=== PATIENT | male | born 1945 | race Caucasian/White ===

== ENCOUNTER 2018-08-31 13:51 | Inpatient (IN) | payer MEDICARE, OTHER ==
[~2018-08-31] VITALS: Ht 182.9 cm; Wt 88.5 kg
[2018-08-31] VITALS (9 sets, daily range): BP systolic 110–144; BP diastolic 45–77
[2018-08-31] MEDS ORDERED: METFORMIN 1000 MG (14:04)
[2018-08-31] MEDS ORDERED: ZOLPIDEM 10 MG (14:04)
--- OUTSIDE RECORDS SUMMARY | 2018-08-31 14:15 | XMS REPORT | Continuity of Care Document ---
Author Organization Unknown Address Unknown Allergies There is no data. Medications There is no data. Problems There is no data. Procedures There is no data. Results There is no data. Encounters ACCT No. Visit Date/Time Discharge Status Pt. Type Provider Facility Loc./Unit Complaint [id number] 08/31/2018 10:40:00 ACT Outpatient [facility]
[2018-08-31 14:48] LABS: BASOPHILS % (AUTO) 0 % (0-10); EOSINOPHILS # (AUTO) 0.1 10^3/uL (0.0-0.3); EOSINOPHILS % (AUTO) 1 % (0-10); HEMATOCRIT 26 % (40-54); HEMOGLOBIN 7.8 G/DL (13.3-17.7); LYMPHOCYTES % (AUTO) 9 % (12-44); MEAN CORPUSCULAR HEMOGLOBIN 29 PG (25-34); MEAN CORPUSCULAR HGB CONC 30 G/DL (32-36); MEAN CORPUSCULAR VOLUME 97 FL (80-99); MEAN PLATELET VOLUME 11.3 FL (7.4-10.4); MONOCYTES % (AUTO) 8 % (0-12); NEUTROPHILS # (AUTO) 9.5 X 10^3 (1.8-7.8); NEUTROPHILS % (AUTO) 82 % (42-75); PLATELET COUNT 174 10^3/uL (130-400); RED CELL DISTRIBUTION WIDTH 25.1 % (10.0-14.5); WHITE BLOOD COUNT 11.6 10^3/uL (4.3-11.0)
[2018-08-31 15:00] LABS: ALBUMIN 3.4 GM/DL (3.2-4.5); BILIRUBIN,TOTAL 0.4 MG/DL (0.1-1.0); CALCIUM 8.9 MG/DL (8.5-10.1); CREATININE SERUM 1.66 MG/DL (0.60-1.30); MAGNESIUM 1.9 MG/DL (1.8-2.4); POTASSIUM 5.8 MMOL/L (3.6-5.0); TOTAL PROTEIN 7.8 GM/DL (6.4-8.2)
--- NOTE | 2018-08-31 15:44 | ED Respiratory ---
General Chief Complaint: Respiratory Problems Stated Complaint: SOB;LOW HEMOGLOBIN Nursing Triage Note: PT SENT FROM [facility] WITH COMPLAINT OF LOW HGB. STATES HGB TODAY WAS 3.5. STATES 3 WEEKS AGO WAS 6.5 Source: patient Exam Limitations: no limitations History of Present Illness Date Seen by Provider: Aug 31, 2018 Time Seen by Provider: 14:25 Initial Comments Here with report of low hemoglobin. Apparently he was seen at the clinic in [place] and was told he had a hemoglobin of 3.5 on a rapid test. He went to the clinic because he was having dizziness and shortness of breath when walking. Does have history of low hemoglobin and a few weeks ago was apparently 6.5. Previous records indicate that he has multiple episodes of this. He is not sure exactly why. Denies fever or chills but does admit to weakness. Does have shortness of breath especially with activity. No reported swelling in his legs but does have increased swelling and redness abdomen which she says is typical for him. Denies any knowledge of cause of blood loss and denies blood in stool or urine. Timing/Duration: week, getting worse Severity: moderate Prior Episodes/Possible Cause: occasional episodes Associated Symptoms: No chest pain/soreness, No cough; dizziness; No fever/ chills; lightheadedness; No nasal congestion, No nasal drainage; shortness of breath; No sinus infection, No wheezing Allergies and Home Medications Allergies Coded Allergies: No Known Drug Allergies (Unverified , 08/31/18) Home Medications Aspirin 81 Mg Tablet.dr, 81 MG PO DAILY, (Reported) Ferrous Sulfate 325 Mg Tablet, 325 MG PO DAILY, (Reported) Ibuprofen 200 Mg Tablet, 600 MG PO TID PRN for PAIN-MILD, (Reported) Metformin HCl 1,000 Mg Tablet, 1,000 MG PO BID, (Reported) Multivit-Min/Folic/Vit K/Lycop 1 Each Tablet, 1 TAB PO DAILY, (Reported) [place]-3/Dha/Epa/Fish Oil 1 Each Capsule, 1 CAP PO BID, (Reported) Zolpidem Tartrate 10 Mg Tablet, 10 MG PO HS, (Reported) Patient Home Medication List Home Medication List Reviewed: Yes Review of Systems Review of Systems Constitutional: see HPI; No chills, No fever; weakness EENTM: no symptoms reported Respiratory: No cough; dyspnea on exertion, short of breath; No wheezing Cardiovascular: No chest pain, No edema, No palpitations Gastrointestinal: No abdominal pain, No nausea, No vomiting Genitourinary: no symptoms reported Musculoskeletal: no symptoms reported Skin: change in color; No lesions Psychiatric/Neurological: Denies Headache; Weakness Hematologic/Lymphatic: Anemia; Denies Easy Bleeding, Denies Easy Bruising Immunological/Allergic: no symptoms reported All Other Systems Reviewed Negative Unless Noted: Yes Past Crdxdkx-Iynylw-Irayej Hx Past Med/Social Hx: Reviewed Nursing Past Med/Soc Hx Patient Social History Alcohol Use: Denies Use Recreational Drug Use: No Smoking Status: Former Smoker Type Used: Smokeless Tobacco Recent Foreign Travel: No Contact w/Someone Who Travel: No Recent Infectious Disease Expo: No Recent Hopitalizations: No Physical Abuse: No Sexual Abuse: No Immunizations Up To Date Tetanus Booster (TDap): Unknown PED Vaccines UTD: Yes Seasonal Allergies Seasonal Allergies: No Past Medical History Surgeries: Yes (EXPLORATORY LAP) Tonsillectomy Respiratory: Yes Pneumonia Cardiac: No Neurological: No Genitourinary: No Gastrointestinal: No Musculoskeletal: No Endocrine: Yes Diabetes, Non-Insulin dep HEENT: No Cancer: No Psychosocial: No Integumentary: No Family Medical History Reviewed Nursing Family Hx Physical Exam Vital Signs - First Documented 08/31/18 14:00 Temp 97.7 Pulse 57 Resp 20 B/P (MAP) 104/51 (68) Pulse Ox 92 O2 Delivery Room Air O2 Flow Rate 2.00 Capillary Refill : Less Than 3 Seconds Height: 6'0" Weight: 183lbs. oz. 83.819749ks; BMI Method:Stated General Appearance: WD/WN, no apparent distress HEENT: PERRL/EOMI, pharynx normal, pale conjunctivae (R), pale conjunctivae (L) Neck: full range of motion, supple Respiratory: no accessory muscle use, crackles (bilateral bases) Cardiovascular: no murmur, bradycardia Gastrointestinal: non tender, soft; No abnormal bowel sounds; distended Extremities: non-tender, normal inspection Neurologic/Psychiatric: alert, oriented x 3 Skin: normal color, warm/dry Focused Exam Lactate Level Lactic Acid Level Procedures/Interventions Lumen: triple Central Line Procedure: betadine prep, sterile drapes applied, sterile dressing applied Position: internal jugular (R) Anesthesia: Lidocaine Volume Anesthetic (ccs): 4 Complications: none Post Position: sutured, good blood return, position confirmed w/ CXR Placed via ultrasound guidance times one stick with out complications. Tolerated procedure well. Post chest x-ray confirmed placement. No pneumothorax. Progress/Results/Core Measures Suspected Sepsis Recent Fever Within 48 Hours: No Infection Criteria Present: None New/Unexplained Altered Menta: No Sepsis Screen: No Definite Risk SIRS Temperature:97.7 Pulse: 57 Respiratory Rate: 20 Laboratory Tests 08/31/18 14:20: White Blood Count 11.6H Blood Pressure 104 /51 Mean: 68 Laboratory Tests 08/31/18 14:20: Creatinine 1.66H, Platelet Count 174, Total Bilirubin 0.4 Results/Orders Lab Results Laboratory Tests Test 08/31/18 14:20 08/31/18 16:27 Range/Units White Blood Count 11.6 H 4.3-11.0 10^3/uL Red Blood Count 2.72 L 4.35-5.85 10^6/uL Hemoglobin 7.8 L 13.3-17.7 G/DL Hematocrit 26 L 40-54 % Mean Corpuscular Volume 97 80-99 FL Mean Corpuscular Hemoglobin 29 25-34 PG Mean Corpuscular Hemoglobin Concent 30 L 32-36 G/DL Red Cell Distribution Width 25.1 H 10.0-14.5 % Platelet Count 174 130-400 10^3/uL Mean Platelet Volume 11.3 H 7.4-10.4 FL Neutrophils (%) (Auto) 82 H 42-75 % Lymphocytes (%) (Auto) 9 L 12-44 % Monocytes (%) (Auto) 8 0-12 % Eosinophils (%) (Auto) 1 0-10 % Basophils (%) (Auto) 0 0-10 % Neutrophils # (Auto) 9.5 H 1.8-7.8 X 10^3 Lymphocytes # (Auto) 1.0 1.0-4.0 X 10^3 Monocytes # (Auto) 1.0 0.0-1.0 X 10^3 Eosinophils # (Auto) 0.1 0.0-0.3 10^3/uL Basophils # (Auto) 0.0 0.0-0.1 10^3/uL Sodium Level 140 135-145 MMOL/L Potassium Level 5.8 H 3.6-5.0 MMOL/L Chloride Level 114 H 98-107 MMOL/L Carbon Dioxide Level 16 L 21-32 MMOL/L Anion Gap 10 5-14 MMOL/L Blood Urea Nitrogen 36 H 7-18 MG/DL Creatinine 1.66 H 0.60-1.30 MG/DL Estimat Glomerular Filtration Rate 41 BUN/Creatinine Ratio 22 Glucose Level 190 H 70-105 MG/DL Calcium Level 8.9 8.5-10.1 MG/DL Corrected Calcium 9.4 8.5-10.1 MG/DL Magnesium Level 1.9 1.8-2.4 MG/DL Total Bilirubin 0.4 0.1-1.0 MG/DL Aspartate Amino Transf (AST/SGOT) 48 H 5-34 U/L Alanine Aminotransferase (ALT/SGPT) 34 0-55 U/L Alkaline Phosphatase 137 H 40-136 U/L Lactate Dehydrogenase 474 H 125-220 U/L Troponin I 0.066 H <0.028 NG/ML B-Type Natriuretic Peptide 1240.9 H <100.0 PG/ML Total Protein 7.8 6.4-8.2 GM/DL Albumin 3.4 3.2-4.5 GM/DL Thyroid Stimulating Hormone (TSH) 1.89 0.35-4.94 UIU/ML Urine Color YELLOW Urine Clarity SLIGHTLY CLOUDY Urine pH 5 5-9 Urine Specific [place] 1.020 1.016-1.022 Urine Protein 2+ H NEGATIVE Urine Glucose (UA) 2+ H NEGATIVE Urine Ketones 1+ H NEGATIVE Urine Nitrite NEGATIVE NEGATIVE Urine Bilirubin NEGATIVE NEGATIVE Urine Urobilinogen NORMAL NORMAL MG/DL Urine Leukocyte Esterase 1+ H NEGATIVE Urine RBC (Auto) 1+ H NEGATIVE Urine RBC 0-2 /HPF Urine WBC 5-10 H /HPF Urine Squamous Epithelial Cells 2-5 /HPF Urine Crystals NONE /LPF Urine Bacteria TRACE /HPF Urine Casts PRESENT /LPF Urine Hyaline Casts 2-5 H /LPF Urine White Blood Cell Casts 2-5 H /LPF Urine Mucus SMALL H /LPF Urine Culture Indicated YES Micro Results Microbiology 08/31/18 Urine Culture - Preliminary, Resulted Mixed Bacterial Sarika With Escherichia coli My Orders Orders - HENOK HENLEY MD BNP (08/31/18 14:38) Cbc With Automated Diff (08/31/18 14:38) Comprehensive Metabolic Panel (08/31/18 14:38) Magnesium (08/31/18 14:38) Thyroid Stimulating Hormone (08/31/18 14:38) Troponin I (08/31/18 14:38) Ua Culture If Indicated (08/31/18 14:38) Ed Iv/Invasive Line Start (08/31/18 14:38) Ekg Tracing (08/31/18 14:38) O2 (08/31/18 14:38) Monitor-Rhythm Ecg Trace Only (08/31/18 14:38) Ed Iv/Invasive Line Start (08/31/18 14:38) Red Cells Leukocytes Reduced (08/31/18 14:38) Type And Screen (08/31/18 14:38) Chest Pa/Lat (2 View) (08/31/18 15:36) Lactic Acid Analyzer (08/31/18 16:35) Blood Culture (08/31/18 16:35) Vital Signs/I&O 08/31/18 08/31/18 14:00 14:00 Temp 97.7 Pulse 57 Resp 20 B/P (MAP) 104/51 (68) Pulse Ox 92 99 O2 Delivery Room Air Nasal Cannula O2 Flow Rate 2.00 Capillary Refill : Less Than 3 Seconds Blood Pressure Mean: 68 Progress Note : Progress Note Seen and evaluated. IV, labs, EKG and UA ordered. Chest x-ray 2 view ordered. We did type and cross 2 units to give the patient's hemoglobin was found to be 7.8 so we will hold those currently. Evaluating for congestive heart failure and BNP is quite elevated in setting of dyspnea on exertion and crackles on exam indicating patient likely does have acute heart failure. Monitor patient. 1546: She is noted to have heart rate fluctuations between the 30s and low 50s on the monitor. 1630: Chest x-ray obtained. Concerns about pneumonia. Also concerns about heart failure. We will get blood cultures and lactic acid drawn now due to new findings. Patient will require admission. 1647: I discussed the case with Dr. Madden and she accepts patient for admission, inpatient status. 1650 I have talked with Dr. Perez and he accepts patient in consult. He requested ICU status so that will be upgraded. Dr. Madden has requested Dr. Cook on consult and that was placed. 1728: Dr. Perez has seen the patient in the emergency department. We will transfuse 2 units of packed red blood cells on arrival to the unit. We'll give Lasix 40 mg IV now. Patient will require calcium due to the hyperkalemia in the setting of bradycardia. We will also give Zosyn for treatment of the pneumonia. Patient has very poor access and we will place central line. 1732: Lactic acid noted at 4.03. This would put the patient in the status of severe sepsis and would require high-volume fluid resuscitation. In this patient, that would be dangerous due to the heart failure. He will be receiving blood and I believe that is his greatest need currently. He will be receiving Lasix as well and fluid with the blood. We will hold on high-volume fluid resuscitation at this point as we maximized cardiovascular system otherwise. Patient will be admitted to the ICU. This was discussed with Dr. Madden who agrees. Patient also received Kayexalate 15 mL by mouth for the hyperkalemia and 2 A of calcium gluconate. All findings concerns were discussed with patient and family who agree with the plan. Admit inpatient status to the ICU. Labs per Dr. Brasher were ordered prior to transfusion and lab will obtained blood or will draw as needed prior to transfusion to achieve appropriate results. 1810: Central line placed without difficulty. Post chest x- ray view didn't show central line in good position without pneumothorax. Okay to use the line. I did discuss the case with Dr. Reed. He will follow in the ICU as well. Patient to be admitted to the ICU and transfusion to be initiated. Admit, inpatient status. Stable but critical condition. ECG Initial ECG Impression Date: Aug 31, 2018 Initial ECG Impression Time: 14:35 Initial ECG Rate: 43 Initial ECG Rhythm: S.Joselito Initial ECG Impression: Sinus Bradycardia Initial ECG Comparisson: No Previous ECG Available Comment Junctional escape rhythm with absence of P waves. No evidence of ST elevation VA. Left axis deviation. Findings consistent with right bundle branch block and left anterior fascicular block noted. Compared to 01 May 2017 from [facility] EKG shows very similar findings. Diagnostic Imaging Diagonstic Imaging: Xray Plain Films/CT/US/NM/MRI: chest Comments [facility] UPMCContinuity Control [facility] [place], [place] NAME: LOTUS MAY [facility] REC#: [id number] PT STATUS: REG ER : 1945 PHYSICIAN: HENOK HENLEY MD ADMIT DATE: 08/31/18/ER Draft Date of Exam:08/31/18 CHEST PA/LAT (2 VIEW) EXAMINATION: PA and lateral chest at 04:04 p.m. INDICATION: Respiratory distress. FINDINGS: There are no prior studies available for comparison. The heart size is at the upper limits of normal. There are alveolar/interstitial infiltrates along the periphery of each lung base and the right mid lung. It is possible these findings are entirely chronic in nature. If previous exams are available, they would be helpful for comparison. The possibility that these abnormal parenchymal densities are related to acute pneumonia/atelectasis should be considered as well. The mediastinum is not widened. The osseous structures are intact. There does appear to be a 30-40% compression deformity of the superior endplate of T11. I suspect this injury is long-standing in nature. IMPRESSION: There are alveolar/interstitial parenchymal infiltrates along the periphery of each lung base and the right mid lung. While these findings are chronic in nature, due to an acute abnormality or to a combination of both chronic and active disease is not certain. If previous studies are available, they would be helpful for comparison. Otherwise a follow-up chest exam would be recommended for continued evaluation. Dictated on workstation # [id number] Dict: 08/31/18 1620 Trans: 08/31/18 1628 [id number] Interpreted by: BARBRA NORRIS MD Electronically signed by: Tessa Imaging: Xray Plain Films/CT/US/NM/MRI: chest Comments Central line placement chest x-ray shows central line in good position without pneumothorax. Departure Communication (Admissions) Time/Spoke to Admitting Phy: 16:47 Time/Spoke to Consulting Phy: 16:48 Impression Primary Impression: Bilateral pneumonia Qualified Codes: J18.1 - Lobar pneumonia, unspecified organism Additional Impressions: Acute heart failure Qualified Codes: I50.9 - Heart failure, unspecified Anemia Qualified Codes: D64.9 - Anemia, unspecified Acute hyperkalemia Bradycardia Acute renal failure Qualified Codes: N17.9 - Acute kidney failure, unspecified Disposition: ADMITTED INPATIENT Condition: Stable Admissions Decision to Admit Reason: Admit from ER (General) Decision to Admit/Date: Aug 31, 2018 Time/Decision to Admit Time: 17:38 Departure-Patient Inst. Referrals: JASS [facility] MD (PCP/Family) Primary Care Physician HENOK HENLEY MD Aug 31, 2018 15:44
--- NOTE | 2018-08-31 16:28 | Diagnostic Imaging Report ---
EXAMINATION: PA and lateral chest at 04:04 p.m. INDICATION: Respiratory distress. FINDINGS: There are no prior studies available for comparison. The heart size is at the upper limits of normal. There are alveolar/interstitial infiltrates along the periphery of each lung base and the right mid lung. It is possible these findings are entirely chronic in nature. If previous exams are available, they would be helpful for comparison. The possibility that these abnormal parenchymal densities are related to acute pneumonia/atelectasis should be considered as well. The mediastinum is not widened. The osseous structures are intact. There does appear to be a 30-40% compression deformity of the superior endplate of T11. I suspect this injury is long-standing in nature. IMPRESSION: There are alveolar/interstitial parenchymal infiltrates along the periphery of each lung base and the right mid lung. While these findings are chronic in nature, due to an acute abnormality or to a combination of both chronic and active disease is not certain. If previous studies are available, they would be helpful for comparison. Otherwise a follow-up chest exam would be recommended for continued evaluation. Dictated by: Dictated on workstation # [id number]
[2018-08-31 16:32] LABS: BILIRUBIN,URINE NEGATIVE (NEGATIVE); CLARITY,URINE SLIGHTLY CLOUDY; COLOR,URINE YELLOW; GLUCOSE, URINE (UA) 2+ (NEGATIVE); KETONES,URINE 1+ (NEGATIVE); LEUKOCYTE ESTERASE ,URINE 1+ (NEGATIVE); NITRITE,URINE NEGATIVE (NEGATIVE); PH,URINE 5 (5-9); PROTEIN,URINE 2+ (NEGATIVE); UROBILINOGEN,URINE NORMAL (NORMAL)
[2018-08-31 16:48] LABS: BACTERIA,URINE TRACE /HPF; RBC,URINE 0-2 /HPF
[2018-08-31] MEDS ORDERED: FUROSEMIDE 40 MG/4 ML INJ (LASIX) IV STA (16:53)
[2018-08-31] MEDS ORDERED: SOD POLYSTERENE 15 GM/60 ML (KAYEXALATE) UNIT DOSE PO ONE (17:00)
--- NOTE | 2018-08-31 17:01 | NUR ---
DR MORA HERE TO SEE PT
[2018-08-31] MEDS ORDERED: CALCIUM GLUC. 10% 4.65 MEQ/10 ML VIAL ONE (17:07)
[2018-08-31] MEDS ORDERED: CALCIUM GLUC. 10% 4.65 MEQ/10 ML VIAL IV ONE ×3 (17:15→18:30)
[2018-08-31] MEDS ORDERED: PIPERACILLIN/TAZOBACTAM (BULK) 4.5 GM in NS (IVPB) 100 ML IV ONE (17:15)
--- OUTSIDE RECORDS SUMMARY | 2018-08-31 18:13 | XMS REPORT | Continuity of Care Document ---
Author Organization Unknown Address Unknown Allergies There is no data. Medications There is no data. Problems There is no data. Procedures There is no data. Results There is no data. Encounters ACCT No. Visit Date/Time Discharge Status Pt. Type Provider Facility Loc./Unit Complaint [id number] 08/31/2018 10:40:00 ACT Outpatient [facility]
--- NOTE | 2018-08-31 18:29 | Diagnostic Imaging Report ---
INDICATION: Central line placement. COMPARISON: Imaging from the same day. TECHNIQUE: Single frontal radiograph of the chest dated August 31, 2018 at 1802 hours. FINDINGS: Interval placement of a right IJ central venous catheter with the distal tip near the cavoatrial junction. There is no evidence of a pneumothorax. The cardiac silhouette is stable. Extensive mixed interstitial and airspace opacities are again noted throughout the lungs bilaterally, predominantly in a peripheral distribution. This is possibly slightly worsened within the lateral right lung. No pneumothorax. No new acute osseous abnormality. IMPRESSION: Interval placement of a right IJ central venous catheter with the distal tip near the cavoatrial junction without pneumothorax. Persistent extensive mixed interstitial and airspace opacities, possibly slightly worse within the lateral right lung base. These are of uncertain etiology or chronicity. Although findings could predominantly relate to chronic interstitial changes, superimposed infiltrate such as edema or pneumonia may be present. Recommend continued radiographic followup. Dictated by: Dictated on workstation # [id number]
--- NOTE | 2018-08-31 18:51 | Consultation-Cardiology ---
HPI-Cardiology Cardiology Consultation: Date of Consultation 08/31/18 Time Seen by a Provider: 17:00 Date of Admission Attending Physician Alison Madden DO Admitting Physician Kathryn Lepe MD Consulting Physician ANTHONY MORA MD, MA, FACP, FACC, FSCAI, CCDS HPI: Chief Complaint: CC: Malaise, weakness, tiredness, shortness of breath HPI 73 yo man who presented to ER with 3-4 days of increasing weakness and malaise and shortness of breath. Denies cp or palp or syncope. Notes mild leg swelling. No N/V. Some abd distention w/o pain, apparently chronic Review of Systems-Cardiology Review of Systems Constitutional: As described under HPI Eyes: No vision change Ears/Nose/Throat: No ear discharge, No nasal drainage, No recent hearing loss Respiratory: As described under HPI Cardiovascular: As described under HPI Gastrointestinal: As described under HPI Genitourinary: No dysuria, No hematuria Musculoskeletal: back pain (chronic) Skin: No rash, No ulcerations Psychiatric/Neurological: No seizure, No focal weakness, No syncope All Other Systems Reviewed Negative Unless Noted: Yes EAA-Facnxf-Tljqpf Hx Patient Social History Alcohol Use: Denies Use Recreational Drug Use: No Smoking Status: Former Smoker Type Used: Smokeless Tobacco Recent Foreign Travel: No Recent Infectious Disease Expo: No Hospitalization with Isolation: Denies Immunizations Up To Date Tetanus Booster (TDap): Unknown Past Medical History PMH As described under Assessment. Family Medical History Family Medical History: Does not report fam h/o early CAD or SCD Allergies and Home Medications Allergies Coded Allergies: No Known Drug Allergies (Unverified , 08/31/18) Patient Home Medication List Home Medication List Reviewed: Yes Physical Exam-Cardiology Physical Exam Vital Signs/I&O 08/31/18 08/31/18 14:00 14:00 Temp 97.7 Pulse 57 Resp 20 B/P (MAP) 104/51 (68) Pulse Ox 92 99 O2 Delivery Room Air Nasal Cannula O2 Flow Rate 2.00 Capillary Refill : Less Than 3 Seconds Constitutional: AAO x 3, well-developed, well-nourished, other (pale appearing) HEENT: PERRL, EOMI; No xanthelasmas are seen Neck: carotid pulses are 2 + bilaterally, with good upstrokes Respiratory: No accessory muscle use; other (bibasilar coarse crackles, more on the R; prolonged exp) Cardiovascular: irregularly irregular, S1 and S2, systolic murmur (soft HETAL at card base) Gastrointestinal: No tender; distended; No guarding, No rebound; audible bowel sounds Extremities: swelling (mild bilat leg edema); No clubbing, No cyanosis Neurologic/Psychiatric: oriented x 3, other (able to move all limbs equally) Skin: No rash on exposed areas, No ulcerations on exposed areas Data Review Labs Laboratory Tests 08/31/18 14:20: White Blood Count 11.6H, Red Blood Count 2.72L, Hemoglobin 7.8L, Hematocrit 26L , Mean Corpuscular Volume 97, Mean Corpuscular Hemoglobin 29, Mean Corpuscular Hemoglobin Concent 30L, Red Cell Distribution Width 25.1H, Platelet Count 174, Mean Platelet Volume 11.3H, Neutrophils (%) (Auto) 82H, Lymphocytes (%) (Auto) 9L, Monocytes (%) (Auto) 8, Eosinophils (%) (Auto) 1, Basophils (%) (Auto) 0, Neutrophils # (Auto) 9.5H, Lymphocytes # (Auto) 1.0, Monocytes # (Auto) 1.0, Eosinophils # (Auto) 0.1, Basophils # (Auto) 0.0, Sodium Level 140, Potassium Level 5.8H, Chloride Level 114H, Carbon Dioxide Level 16L, Anion Gap 10, Blood Urea Nitrogen 36H, Creatinine 1.66H, Estimat Glomerular Filtration Rate 41, BUN/ Creatinine Ratio 22, Glucose Level 190H, Calcium Level 8.9, Corrected Calcium 9.4, Magnesium Level 1.9, Total Bilirubin 0.4, Aspartate Amino Transf (AST/SGOT ) 48H, Alanine Aminotransferase (ALT/SGPT) 34, Alkaline Phosphatase 137H, Lactate Dehydrogenase 474H, Troponin I 0.066H, B-Type Natriuretic Peptide 1240.9H, Total Protein 7.8, Albumin 3.4, Thyroid Stimulating Hormone (TSH) 1.89 08/31/18 16:27: Urine Color YELLOW, Urine Clarity SLIGHTLY CLOUDY, Urine pH 5, Urine Specific [place] 1.020, Urine Protein 2+H, Urine Glucose (UA) 2+H, Urine Ketones 1+H, Urine Nitrite NEGATIVE, Urine Bilirubin NEGATIVE, Urine Urobilinogen NORMAL, Urine Leukocyte Esterase 1+H, Urine RBC (Auto) 1+H, Urine RBC 0-2, Urine WBC 5- 10H, Urine Squamous Epithelial Cells 2-5, Urine Crystals NONE, Urine Bacteria TRACE, Urine Casts PRESENT, Urine Hyaline Casts 2-5H, Urine White Blood Cell Casts 2-5H, Urine Mucus SMALLH, Urine Culture Indicated YES 08/31/18 17:06: Lactic Acid Level 4.03*H Laboratory Tests 08/31/18 14:20 08/31/18 18:45 A/P-Cardiology Assessment/Admission Diagnosis Sepsis, managed by Dr Madden Pneumonia Ac renal failure with hyperkalemia A Fib with bradycardia vs junctional rhythm Marked anemia of undetermined etiology, GI bleed suspected. Not suitable for anticoag at this time CHF of undetermined etiology H/o tobacco use. Quit smoking in the , but continues to chew tobacco Discussion and Recomendations * Complex management due to multiple concurrent and active comorbidities (see above) * Treat anemia: transfusion * Treat acute renal failure: managed by Dr Madden * Treat hyperkalemia: furosemide + Kayexalate + calcium gluconate * Not suitable of anticoag at this time * If bradycardia remains after treatment of acute issues, then may need perm pacemaker. Currently bradycardic, but hemodynamically stable * ANTHONY Fong MD FACP FAC CCDS Aug 31, 2018 18:51
[2018-08-31 18:52] LABS: ABSOLUTE RETIC # 47 10e9/L (24-90); BASOPHILS % (AUTO) 0 % (0-10); EOSINOPHILS # (AUTO) 0.2 10^3/uL (0.0-0.3); EOSINOPHILS % (AUTO) 2 % (0-10); HEMATOCRIT 24 % (40-54); HEMOGLOBIN 7.1 G/DL (13.3-17.7); LYMPHOCYTES # (AUTO) 0.8 X 10^3 (1.0-4.0); LYMPHOCYTES % (AUTO) 7 % (12-44); MEAN CORPUSCULAR HEMOGLOBIN 29 PG (25-34); MEAN CORPUSCULAR HGB CONC 30 G/DL (32-36); MEAN CORPUSCULAR VOLUME 97 FL (80-99); MEAN PLATELET VOLUME 10.9 FL (7.4-10.4); MONOCYTES % (AUTO) 9 % (0-12); NEUTROPHILS % (AUTO) 82 % (42-75); PLATELET COUNT 179 10^3/uL (130-400); RETICULOCYTE % 1.89 % (0.50-2.40)
[2018-08-31] MEDS ORDERED: CATHETER FLUSH 10 ML SYR IV PRN (19:15)
[2018-08-31] MEDS ORDERED: FUROSEMIDE 40 MG/4 ML INJ (LASIX) IV SCH (19:15)
[2018-08-31] MEDS ORDERED: NS IV 1000 ML 2,490.21 ML IV ONE (19:15)
[2018-08-31 19:17] LABS: BAND NEUTROPHILS 0 %; BASOPHILS % (MANUAL) 0 %; EOSINOPHILS % (MANUAL) 2 %; HYPOCHROMASIA SLIGHT; LYMPHOCYTES % (MANUAL) 9 %; MONOCYTES % (MANUAL) 1 %; NEUTROPHILS % (MANUAL) 88 %; POLYCHROMASIA SLIGHT
[2018-08-31 19:18] LABS: ANISOCYTOSIS SLIGHT; ELLIPT/OVALOCYTES SLIGHT
--- NOTE | 2018-08-31 19:23 | NUR ---
1850 Patient arrived on Unit. Connected to monitor. VSS. Bradycardic. HR in 40's. BP OK. A and O x4. SKin assessed and no wounds/sores present. Pleasant demeanor. Side rails up. Call Light placed within patient's reach. Report given to Plush Brusher RN shortly thereafter.
[2018-08-31] MEDS: NOREPINEPHRINE 4 MG in NS (IVPB) 250 ML IV SCH (20:06)
[2018-08-31] MEDS: NS IV 1000 ML 1,000 ML IV SCH ×3 (20:06→23:13)
[2018-08-31] MEDS ORDERED: RT-ALBUTEROL/IPRATROPIUM 3 ML (DUONEB) VIAL INH PRN (21:00)
[2018-08-31] MEDS: inSUlin ASPART (NovoLOG) 1 UNIT/0.01 ML (CHARGE PER UNIT) SC SCH (21:41)
[2018-08-31] MEDS: RT-ALBUTEROL/IPRATROPIUM 3 ML (DUONEB) VIAL INH SCH (22:31)
[2018-09-01] VITALS (27 sets, daily range): BP systolic 110–152; BP diastolic 25–117
[2018-09-01] MEDS ORDERED: FUROSEMIDE 40 MG/4 ML INJ (LASIX) IVP ONE (00:30)
[2018-09-01] MEDS ORDERED: PIPERACILLIN/TAZO 4.5 GM VIAL (ZOSYN) IV ONE (01:47)
[2018-09-01] MEDS: PIPERACILLIN/TAZO 4.5 GM/NS 100 ML IV SCH ×6 (02:10→17:13)
[2018-09-01] MEDS: NOREPINEPHRINE 4 MG in NS (IVPB) 250 ML IV SCH (02:11)
[2018-09-01] MEDS: RT-ALBUTEROL/IPRATROPIUM 3 ML (DUONEB) VIAL INH SCH ×6 (02:28→21:47)
[2018-09-01] MEDS ORDERED: NS IV 1000 ML 1,000 ML IV SCH (03:01)
[2018-09-01 03:30] LABS: BASOPHILS % (AUTO) 0 % (0-10); EOSINOPHILS # (AUTO) 0.1 10^3/uL (0.0-0.3); EOSINOPHILS % (AUTO) 1 % (0-10); HEMATOCRIT 27 % (40-54); HEMOGLOBIN 8.3 G/DL (13.3-17.7); LYMPHOCYTES % (AUTO) 10 % (12-44); MEAN CORPUSCULAR HEMOGLOBIN 29 PG (25-34); MEAN CORPUSCULAR HGB CONC 31 G/DL (32-36); MEAN CORPUSCULAR VOLUME 93 FL (80-99); MEAN PLATELET VOLUME 10.7 FL (7.4-10.4); MONOCYTES # (AUTO) 0.9 X 10^3 (0.0-1.0); MONOCYTES % (AUTO) 9 % (0-12); NEUTROPHILS # (AUTO) 7.7 X 10^3 (1.8-7.8); NEUTROPHILS % (AUTO) 79 % (42-75); PLATELET COUNT 151 10^3/uL (130-400); RED CELL DISTRIBUTION WIDTH 24.3 % (10.0-14.5); WHITE BLOOD COUNT 9.8 10^3/uL (4.3-11.0)
[2018-09-01 03:47] LABS: CALCIUM 8.9 MG/DL (8.5-10.1); CREATININE SERUM 1.74 MG/DL (0.60-1.30); MAGNESIUM 1.9 MG/DL (1.8-2.4); PHOSPHORUS 3.8 MG/DL (2.3-4.7); POTASSIUM 4.5 MMOL/L (3.6-5.0)
[2018-09-01] MEDS: inSUlin ASPART (NovoLOG) 1 UNIT/0.01 ML (CHARGE PER UNIT) SC SCH ×4 (05:06→18:05)
[2018-09-01] MEDS: MAGNESIUM 1 GM/100 ML IVPB 100 ML IV SCH (05:06)
--- NOTE | 2018-09-01 05:40 | Pulmonary Consultation ---
History of Present Illness History of Present Illness Date of Consultation 09/01/18 05:34 Time Seen by Provider: 05:34 Date of Admission History of Present Illness 73yo presented to ED secondary to worsening weakness, fatigue, and SOB over the last 4days. Pt was dx with bradycardia and pneumonia in the ED. He started on Zosyn and admitted to ICU. He was also found to have Hb 7.8 2 units of PRBC were ordered. Cardiology is consulted. No hypotension. He does have acute renal failure and LA was initially elevated. No prior episodes like this in the past. I am consulted for pulmonary/ICU management. Allergies and Home Medications Allergies Coded Allergies: No Known Drug Allergies (Unverified , 08/31/18) Past Ksrixgd-Wvwtgq-Hthbnr Hx Past Med/Social Hx: Reviewed Nursing Past Med/Soc Hx Patient Social History Alcohol Use: Denies Use Recreational Drug Use: No Smoking Status: Former Smoker Type Used: Smokeless Tobacco Recent Foreign Travel: No Contact w/Someone Who Travel: No Recent Infectious Disease Expo: No Recent Hopitalizations: No Physical Abuse: No Sexual Abuse: No Immunizations Up To Date Tetanus Booster (TDap): Unknown PED Vaccines UTD: Yes Date of Pneumonia Vaccine: Aug 23, 2014 Seasonal Allergies Seasonal Allergies: No Past Medical History Surgeries: Yes (EXPLORATORY LAP) Tonsillectomy Respiratory: Yes Pneumonia Cardiac: No Neurological: No Genitourinary: No Gastrointestinal: No Musculoskeletal: No Endocrine: Yes Diabetes, Non-Insulin dep HEENT: No Cancer: No Psychosocial: No Integumentary: No Family Medical History Reviewed Nursing Family Hx Review of Systems Time Seen by Provider: 06:32 Constitutional: Sweats, Weakness, Malaise; No: Fever, Chills, Other Eyes: No: Pain, Vision change, Conjunctivae inflammation, Eyelid inflammation, Other, Redness ENT: Nose congestion Respiratory: Cough, Dry, Shortness of breath, SOB with excertion, Wheezing Cardiovascular: Paroxysmal Noc. Dyspnea; No: Chest Pain, Palpitations, Orthopnea, Edema Gastrointestinal: No: Nausea, Vomiting, Diarrhea, Constipation Genitourinary: No Dysuria Neurological: Weakness, Confusion Sepsis Event Evaluation Height, Weight, BMI Height: 6'0.00" Weight: 183lbs. 0.0oz. 83.160256gc; 24.8 BMI Method:Stated Exam Exam Vital Signs Date Time Temp Pulse Resp B/P (MAP) Pulse Ox O2 Delivery O2 Flow Rate FiO2 09/01/18 05:00 77 19 121/54 (76) 91 Nasal Cannula 2.00 09/01/18 04:00 93 Nasal Cannula 2.00 09/01/18 04:00 82 22 124/56 (78) 92 Nasal Cannula 2.00 09/01/18 03:11 98.6 49 18 130/51 93 Nasal Cannula 2.00 09/01/18 03:00 43 28 118/53 (74) 95 Nasal Cannula 2.00 09/01/18 02:28 94 Nasal Cannula 2.00 09/01/18 02:00 43 24 110/51 (70) 95 Nasal Cannula 2.00 09/01/18 01:11 45 09/01/18 01:00 48 23 129/44 (72) 93 Nasal Cannula 2.00 09/01/18 00:55 98.3 53 18 126/58 92 Nasal Cannula 2.00 09/01/18 00:35 98.5 54 16 129/49 92 Nasal Cannula 2.00 09/01/18 00:00 93 Nasal Cannula 2.00 09/01/18 00:00 45 24 119/44 (69) 91 Nasal Cannula 2.00 09/01/18 00:00 45 16 119/44 (69) 92 Nasal Cannula 2.00 08/31/18 23:40 98.8 08/31/18 23:10 98.8 49 18 143/52 93 Nasal Cannula 2.00 08/31/18 23:00 47 23 119/49 (72) 93 Nasal Cannula 2.00 08/31/18 23:00 47 16 119/49 (72) 92 Nasal Cannula 2.00 08/31/18 22:31 94 Nasal Cannula 2.00 08/31/18 22:00 46 24 121/77 (92) 91 Nasal Cannula 2.00 08/31/18 22:00 46 16 122/77 (92) 92 Nasal Cannula 2.00 08/31/18 21:00 46 16 122/46 (71) 92 Nasal Cannula 2.00 08/31/18 21:00 46 24 122/46 (71) 91 Nasal Cannula 2.00 08/31/18 20:52 98.5 42 16 112/50 91 Nasal Cannula 2.00 08/31/18 20:39 52 92 08/31/18 20:34 98.0 44 16 117/45 92 Nasal Cannula 2.00 08/31/18 20:00 50 27 144/76 (98) 91 Nasal Cannula 2.00 08/31/18 20:00 50 18 144/76 (98) 91 Nasal Cannula 2.00 08/31/18 20:00 90 Nasal Cannula 2.00 08/31/18 19:15 98.0 46 16 110/45 (66) 90 Nasal Cannula 2.00 08/31/18 19:00 59 08/31/18 18:50 43 18 112/46 (68) 92 Nasal Cannula 3.00 08/31/18 14:00 99 Nasal Cannula 2.00 08/31/18 14:00 97.7 57 20 104/51 (68) 92 Room Air I & O 09/01/18 07:00 Intake Total 960 ml Output Total 1075 ml Balance -115 ml Height & Weight Height: 6'0.00" Weight: 183lbs. 0.0oz. 83.420591tz; 24.8 BMI Method:Stated General Appearance: Anxious, Chronically ill, Moderate Distress HEENT: PERRL/EOMI, Pharynx Normal Neck: Full Range of Motion, Non Tender, Supple Respiratory: Crackles, Decreased Breath Sounds Cardiovascular: No No Edema, No No Gallop, No No Murmur; Bradycardia Capillary Refill: Less Than 3 Seconds Gastrointestinal: non tender, soft; No abnormal bowel sounds; distended Extremity: Normal Capillary Refill, Non Tender, No Pedal Edema Neurologic/Psychiatric: Alert, Oriented x3 Skin: Normal Color, Warm/Dry Lymphatic: No Adenopathy Results Lab Laboratory Tests 08/31/18 14:20 08/31/18 18:45 09/01/18 03:15 Assessment/Plan Assessment/Plan PNA -Continue Zosyn -Iraheta cultures pending I suspect chronic pulmonary fibrosis/COPD -Pt will most likely need home oxygen -Check ABG -Will continue to follow as out patient -Check echocardiogram -Will check CT of chest -PT will need repeat imaging about 8wks after discharge Acute renal failure - worsening CR -Hold Lasix -increase IVF to 125 for now -Elevated BNP is at least partially secondary to renal failure Metabolic lactic acidosis -IVF and monitor GIB - probably upper with Anemia -pt is getting 2 units of PRBC ordered in ED -Occult positive stool -PT probably need colonoscopy/EGD -Consult surgery -start protonix BID IV for now Afib with bradycardia -Cardiology is following Hx of tobacco use JUANA JORDAN DO Sep 01, 2018 05:40
[2018-09-01] MEDS ORDERED: KCL 20 MEQ TAB (K-DUR) PO SCH ×2 (06:00)
[2018-09-01] MEDS ORDERED: MAGNESIUM 1 GM/100 ML IVPB 100 ML IV SCH (06:00)
[2018-09-01] MEDS ORDERED: POTASSIUM CL 10MEQ/50ML IVPB 50 ML IV SCH ×2 (06:00)
[2018-09-01 06:09] LABS: HEMOGLOBIN 8.2 G/DL (13.3-17.7)
[2018-09-01] MEDS ORDERED: FUROSEMIDE 40 MG/4 ML INJ (LASIX) IV SCH (07:00)
--- NOTE | 2018-09-01 08:11 | Cardiology Progress Note ---
Subjective Date Seen by Provider: Sep 01, 2018 Time Seen by Provider: 08:08 Subjective/Events-last exam patient is laying down in bed, denied any chest pain, complaining of generalized fatigue and loss of energy. No shortness of breath Review of Systems General: No Chills, No Night Sweats; Fatigue, Malaise; No Appetite, No Other HEENT: No Head Aches, No Visual Changes, No Eye Pain, No Ear Pain, No Dysphasia , No Sinus Congestion, No Post Nasal Drip, No Sore Throat, No Other Pulmonary: No Dyspnea, No Cough, No Pleuritic Chest Pain, No Other Cardiovascular: No: Chest Pain, Palpitations, Orthopnea, Paroxysmal Noc. Dyspnea, Edema, Lt Headedness, Other Focused Exam Lactate Level 08/31/18 18:45: Lactic Acid Level 2.90*H 08/31/18 20:35: Lactic Acid Level 2.50*H 08/31/18 23:15: Lactic Acid Level 1.99 Objective-Cardiology Exam Last Set of Vital Signs Vital Signs 09/01/18 09/01/18 09/01/18 03:11 06:00 06:23 Temp 98.6 Pulse 78 Resp 26 B/P (MAP) 137/65 (89) Pulse Ox 93 O2 Delivery Nasal Cannula O2 Flow Rate 2.00 Capillary Refill : Less Than 3 Seconds I&O Intake and Output 09/01/18 00:00 Intake Total 480 ml Output Total 425 ml Balance 55 ml Intake Oral 240 ml IV Total 240 ml Output Urine Total 425 ml Daily Weight Change No General: Alert, Oriented X3, Cooperative HEENT: Atraumatic, PERRLA Neck: Supple, No JVD, No Thyromegaly Lungs: Clear to Auscultation, Normal Air Movement Heart: Regular Rate, Normal S1, Normal S2, No Murmurs Abdomen: Normal Bowel Sounds, Soft, No Tenderness, No Hepatosplenomegaly, No Masses Extremities: No Clubbing, No Cyanosis, No Edema, Normal Pulses, No Tenderness/ Swelling Skin: No Rashes, No Breakdown, No Significant Lesion Neuro: Normal Gait, Normal Speech, Strength at 5/5 X4 Ext, Normal Tone, Sensation Intact Psych/Mental Status: Mental Status NL, Mood NL Results Lab Laboratory Tests 08/31/18 14:20 08/31/18 18:45 09/01/18 03:15 09/01/18 05:43 A/P-Cardiology Admission Diagnosis Generalized weakness Sick sinus syndrome Pneumonia Lactic acidosis Assessment/Plan Generalized weakness and loss of energy. Secondary to all the comorbid condition Sick sinus syndrome, intermittent sinus bradycardia, had another episode of sinus bradycardia with first-degree AV block with a heart rate in the 40s. Back to 70s then became bradycardic again. EKG showed junctional escape rhythm , complete heart block, intermittent, continue to monitor after correcting underlying pneumonia and electrolyte imbalance and metabolic acidosis Pneumonia, receiving antibiotic and managed by primary care physician Metabolic and lactic acidosis, improving. Continue to monitor Acute on chronic renal failure, continue on IV fluid and monitor renal function closely Questionable congestive heart failure, I will evaluate echocardiogram Hyperkalemia, that her at this time. Continue to monitor electrolytes closely COPD, questionable pulmonary fibrosis, seen and managed by Dr. Reed Clinical Quality Measures DVT/VTE Risk/Contraindication: Risk Factor Score Per Nursin RFS Level Per Nursing on Admit: 4+=Very High TA WALLACE MD Sep 01, 2018 08:11
[2018-09-01] MEDS: PANTOPRAZOLE 40 MG (PROTONIX) VIAL IV SCH ×2 (08:20→21:21)
--- NOTE | 2018-09-01 08:24 | NUR ---
DR AMAYA IN TO SEE PATIENT, NEW VERBAL ORDERS RECEIVED TO CHECK H&H IN 8 HOURS AND IN AM.
--- NOTE | 2018-09-01 08:57 | Diagnostic Imaging Report ---
EXAMINATION: Portable erect AP chest at 0043 hours. INDICATION: Dyspnea. FINDINGS: There is shallow inspiration when compared to the prior exam of 08/31/2018. Allowing for this technical factor, the heart is stable. The abnormal densities along the periphery of each lung seen previously are again evident and not significantly changed; however, in the interval since the prior study, a vague new area of increased density has developed in the left upper lobe. Most likely, this is due to a new region of pneumonia/atelectasis. There may be slightly increased density in the right upper lobe as well. The mediastinum is not widened. The osseous structures are intact. The central venous catheter on the right is unchanged in position. IMPRESSION: The appearance of the chest has worsened since the prior study as a new area of pneumonia/atelectasis has developed in the left upper lung. A followup study would be recommended for continued evaluation. Dictated by: Dictated on workstation # [id number]
--- NOTE | 2018-09-01 09:23 | Physical Therapy Evaluation ---
PT Evaluation-General Medical Diagnosis Admission Date Aug 31, 2018 at 16:47 Medical Diagnosis: weakness Onset Date: Aug 31, 2018 Therapy Diagnosis Therapy Diagnosis: impaired mobility, strength, endurance Height/Weight Height (Feet): 6 Height (Inches): 0.00 Weight (Pounds): 183 Weight (Ounces): 0.0 Precautions Precautions/Isolations: Fall Prevention, Standard Precautions Weight Bear Status Right Lower Extremity: Right Weight Bearing/Tolerated Left Lower Extremity: Left Weight Bearing/Tolerated Referral Physician: Rommel Reed DO Reason for Referral: Evaluation/Treatment Medical History Pertinent Medical History: DM Additional Medical History former smoker, pneumonia, surg (exploratory lap, tonsillectomy) Current History came to ER with 3-4 days of increasing weakness and SOB Reviewed History: Yes Social History Home: Single Level Current Living Status: Spouse Entry Into Home: Stairs Without Railing PT Steps Into Home: 2 Prior/Core FIM Prior Level of Function Therapy Code Descriptions/Definitions Functional [place] Measure: 0=Not Assessed/NA 4=Minimal Assistance 1=Total Assistance 5=Supervision or Setup 2=Maximal Assistance 6=Modified [place] 3=Moderate Assistance 7=Complete [place] Therapy Quality Codes: 6 Independent with activity with or without an assistive device 5 Patient requires set up or clean up by helper. Patient completes activity by themselves 4 Supervision or touching assist (CGA). [place] provide cues , steadying assist 3 The helper provides less than half the effort to complete the activity 2 The helper provides more than half the effort to complete the activity 1 Dependent. The helper does all the effort to complete an activity 7 Patient refused to complete or attempt activity 9 The patient did not perform the activity before the current illness or injury 88 Not attempted due to Medical conditions or safety concerns Functional Abilities and Goals: Independent: Patient completed the activities by him/herself, with or without an assistive device, with no assistance from a helper. Needed Some Help: Patient needed partial assistance from another person to complete activities. Dependent: A helper completed the activities for the patient. Unknown: Not Applicable: Bed Mobility: 6 Transfers (B,C,W/C) (FIM): 6 Gait: 2 Indoor Mobility (Ambulation): Independent Stairs: Independent Prior Devices Use: Walker Patient states he was using both a walker and a cane prior to coming to the hospital and was walking short distances. PT Evaluation-Current Subjective Patient in bed pre tx, agrees to PT, has no complaints of pain. Pt/Family Goals to be independent at home Objective Patient Orientation: Person, Place, Situation Attachments: Oxygen, [place] Catheter, IV ROM/Strength ROM Lower Extremities WNL Strength Lower Extremities right lower extremity (hip flexion 4/5, knee flexion 4/5, knee extension 4/5, dorsiflexion 3/5), left lower extremity (hip flexion 4/5, knee flexion 4+/5, knee extension 4+/5, dorsiflexion 5/5) His daughter who is in the room states that his right leg has been weaker ever since a back surgery he had about 40 years ago, and he ambulates in a flexed position because of that too. Neuromuscular (Tone, Coordination, Reflexes) NT Sensory Hearing: Functional Sensation Right Lower Extremit: Intact Sensation Left Lower Extremity: Intact Transfers Therapy Code Descriptions/Definitions Functional [place] Measure: 0=Not Assessed/NA 4=Minimal Assistance 1=Total Assistance 5=Supervision or Setup 2=Maximal Assistance 6=Modified [place] 3=Moderate Assistance 7=Complete [place] Transfers (B, C, W/C) (FIM): 4 Scootin Rollin Supine to/from Sit: 4 Sit to/from Stand: 4 bed t/f WC(FIM only if WC use): 4 Supine to sit min assist, scooting min assist, sit to stand CGA, transfers, CGA. Cues for safety and hand placement. Gait Mode of Locomotion: Walk Anticipated Mode of Locomotion: Walk Gait (FIM): 2 Distance: 50' Gait Level of Assist: 4 Gait Persons Needed: 1 Gait Assistive Device: FWW Comments/Gait Description Patient ambulates slowly and slumps over the walker, needs cues to stay closer to the walker. SOB after ambulation. Balance Sitting Static: Good Sitting Dynamic: Good Standing Static: Good Standing Dynamic: Good Treatment seated exercises x15 (AP, LAQ) Assessment/Needs Patient has impaired mobility, strength, endurance. Patient in chair at bedside post tx with nurse call, phone, tray, all needs met, daughter in room. Rehab Potential: Fair PT Short Term Goals Short Term Goals Time Frame: Sep 08, 2018 Transfers (B,C,W/C) (FIM): 5 Gait (FIM): 5 Gait Distance Comment: 150' Gait Level of Assist: 5 Gait Assistive Device: FWW PT Plan Problem List Problem List: Activity Tolerance, Functional Strength, Safety, Balance, Gait, Transfer, Bed Mobility, ROM Treatment/Plan Treatment Plan: Continue Plan of Care Treatment Plan: Bed Mobility, Education, Functional Activity [place], Functional Strength, Gait, Safety, Therapeutic Exercise, Transfers Treatment Duration: Sep 08, 2018 Frequency: 6 times per week Estimated Hrs Per Day: .25 hour per day (15-30') Patient and/or Family Agrees t: Yes Safety Risks/Education Patient Education: Gait Training, Transfer Techniques, Correct Positioning, Safety Issues Teaching Recipient: Patient Teaching Methods: Demonstration, Discussion Response to Teaching: Reinforcement Needed Discharge Recommendations Plan Patient will perform bed mobility and transfer training, balance and endurance training, functional strengthening, stair training, gait training, and education , to improve functional mobility and independence at home. Therapy D/C Recommendations: Home w/ Family Support Time/GCodes Time In: 0848 Time Out: 0910 Total Billed Treatment Time: 22 Total Billed Treatment 1 visit EVM 22' LEYDI HOOD PT Sep 01, 2018 09:23
[2018-09-01] MEDS ORDERED: ZOLP10TA PO (09:40)
[2018-09-01] MEDS ORDERED: METF-399 PO (09:40)
[2018-09-01] MEDS ORDERED: OMEG-160 PO (09:44)
[2018-09-01] MEDS ORDERED: FERR325T18 PO (09:44)
[2018-09-01] MEDS ORDERED: MULT-1102 PO (09:44)
[2018-09-01] MEDS ORDERED: ASPI-983 PO (09:44)
[2018-09-01] MEDS ORDERED: IBUP-30 PO (09:44)
--- NOTE | 2018-09-01 09:44 | NUR ---
PATIENT HAD HIS BOTTLES WITH HIM. WE WENT OVER THEM AND HE VERIFIED HOW HE TAKES EACH MEDICATION.
--- NOTE | 2018-09-01 10:51 | History & Physical-Hospitalist ---
History of Present Illness HPI/Chief Complaint Chief compliant: Shortness of breath HPI: This is a 73yoWM clinic pt of Dr. Lepe who has a history of chronic anemia , presented to the ER from clinic due to low hgb level of the 3 range but he was found to have hgb of 7.8 but positive hemoccult so he was placed in the ICU for CHF, acute renal failure, and a multitude of other organ system failure and was placed on oxygen and pulmonology was also consulted. Dr. Alexander has been consulted for hemoccult positive stools and anemia. He did receive transfusion without complication. He does live at home with his of 49.5 years and his daughter is at the bedside. Source: patient Date Seen 09/01/18 Time Seen by a Provider: 09:30 Attending Physician Alison Crain Katrina M MD Referring Physician Date of Admission Aug 31, 2018 at 16:47 Home Medications & Allergies Home Medications Reviewed patient Home Medication Reconciliation performed by pharmacy medication reconciliations robotics testing technician and/or nursing. Patients Allergies have been reviewed. Allergies Allergies Coded Allergies No Known Drug Allergies (Unverified08/31/18) Past Tavuisg-Gzwuyt-Hqlcmj Hx Past Med/Social Hx: Reviewed Nursing Past Med/Soc Hx, Reviewed and Corrections made Patient Social History Marrital Status: Employed/Student: retired Alcohol Use: Denies Use Recreational Drug Use: No Smoking Status: Former Smoker Type Used: Smokeless Tobacco Recent Foreign Travel: No Contact w/other who traveled: No Recent Hopitalizations: No Recent Infectious Disease Expo: No Immunizations Up To Date Tetanus Booster (TDap): Unknown Pediatric: Yes Date of Pneumonia Vaccine: Aug 23, 2014 Seasonal Allergies Seasonal Allergies: No Past Medical History Surgeries: Tonsillectomy Respiratory: COPD Cardiac: Hypertension Endocrine: Diabetes, Non-Insulin dep Family History Reviewed Nursing Family Hx Review of Systems Constitutional: see HPI, dizziness, weakness EENTM: no symptoms reported Respiratory: dyspnea on exertion Cardiovascular: palpitations Gastrointestinal: loss of appetite Genitourinary: no symptoms reported Musculoskeletal: no symptoms reported Skin: no symptoms reported Psychiatric/Neurological: No Symptoms Reported All Other Systems Reviewed Negative Unless Noted: Yes Physical Exam Physical Exam Vital Signs Vital Signs - First Documented 08/31/18 14:00 Temp 97.7 Pulse 57 Resp 20 B/P (MAP) 104/51 (68) Pulse Ox 92 O2 Delivery Room Air O2 Flow Rate 2.00 Capillary Refill : Less Than 3 Seconds Height, Weight, BMI Height: 6'0.00" Weight: 183lbs. 0.0oz. [id number]; 24.8 BMI Method:Stated General Appearance: No Apparent Distress, Chronically ill, Thin Eyes: Right Eye Normal Inspection, Right Eye PERRL HEENT: PERRL/EOMI, Normal ENT Inspection, Pharynx Normal, Moist Mucous Membranes Neck: Full Range of Motion, Normal Inspection, Non Tender Respiratory: Chest Non Tender, No Accessory Muscle Use, No Respiratory Distress , Crackles, Decreased Breath Sounds Cardiovascular: Regular Rate, Rhythm, No Edema, No Gallop, No JVD, No Murmur, Normal Peripheral Pulses Gastrointestinal: Normal Bowel Sounds, No Organomegaly, No Pulsatile Mass, Non Tender, Soft Back: Normal Inspection, No CVA Tenderness, No Vertebral Tenderness Extremity: Normal Capillary Refill, Normal Inspection, Normal Range of Motion, Non Tender, No Calf Tenderness, No Pedal Edema Neurologic/Psychiatric: Alert, Oriented x3, No Motor/Sensory Deficits, Normal Mood/Affect Skin: Normal Color, Warm/Dry Lymphatic: No Adenopathy Results Results/Procedures Labs Laboratory Tests 08/31/18 14:20 08/31/18 18:45 09/01/18 03:15 09/01/18 05:43 09/01/18 16:50 Patient resulted labs reviewed. Assessment/Plan Admission Diagnosis Assessment: Pneumonia Lung disease Acute renal failure Metabolic lactic acidosis GIB consulting Dr Catherine Rodgers with bradycardia Former tobacco use Plan: Monitor Hgb Appreciate Pulmo, Card, surgery Admission Status: Inpatient Order (span 2 midnights) Reason for Inpatient Admission: ICU care for anemia nad multi-system organ failure Diagnosis/Problems Diagnosis/Problems (1) Bilateral pneumonia Status: Acute Qualifiers: Pneumonia type: due to unspecified organism Lung location: lower lobe of lung Qualified Codes: J18.1 - Lobar pneumonia, unspecified organism (2) Bradycardia Status: Acute (3) Anemia Status: Acute Qualifiers: Anemia type: unspecified type Qualified Codes: D64.9 - Anemia, unspecified (4) Acute renal failure Status: Acute Qualifiers: Acute renal failure type: unspecified Qualified Codes: N17.9 - Acute kidney failure, unspecified (5) Acute hyperkalemia Status: Acute (6) Acute heart failure Status: Acute Qualifiers: Heart failure type: unspecified Qualified Codes: I50.9 - Heart failure, unspecified Clinical Quality Measures DVT/VTE Risk/Contraindication: Risk Factor Score Per Nursin RFS Level Per Nursing on Admit: 4+=Very High ALISON CRAIN DO Sep 01, 2018 10:51
--- NOTE | 2018-09-01 11:41 | Occupational Therapy Eval ---
OT Evaluation-General/PLF Medical Diagnosis Admission Date Aug 31, 2018 at 16:47 Medical Diagnosis: weakness Onset Date: Aug 31, 2018 Therapy Diagnosis Therapy Diagnosis: impaired ADLS and mobility, weakness Height/Weight Height (Feet): 6 Height (Inches): 0.00 Weight (Pounds): 183 Weight (Ounces): 0.0 Precautions Precautions/Isolations: Fall Prevention, Standard Precautions Safety Interventions: None Referral Physician: Rommel Reed DO Referral Reason: Activity Tolerance, Self Care, Evaluation/Treatment Medical History Pertinent Medical History: DM Current History per h&P: "73 yo man who presented to ER with 3-4 days of increasing weakness and malaise and shortness of breath. Denies cp or palp or syncope. Notes mild leg swelling. No N/V. Some abd distention w/o pain, apparently chronic" Reviewed History: Yes Social History Home: Single Level Current Living Status: Spouse Entry Into Home: Stairs Without Railing Steps Into Home: 2 ADL-Prior Level of Function Therapy Code Descriptions/Definitions Functional [place] Measure: 0=Not Assessed/NA 4=Minimal Assistance 1=Total Assistance 5=Supervision or Setup 2=Maximal Assistance 6=Modified [place] 3=Moderate Assistance 7=Complete [place] Therapy Quality Codes: 6 Independent with activity with or without an assistive device 5 Patient requires set up or clean up by helper. Patient completes activity by themselves 4 Supervision or touching assist (CGA). [place] provide cues , steadying assist 3 The helper provides less than half the effort to complete the activity 2 The helper provides more than half the effort to complete the activity 1 Dependent. The helper does all the effort to complete an activity 7 Patient refused to complete or attempt activity 9 The patient did not perform the activity before the current illness or injury 88 Not attempted due to Medical conditions or safety concerns Functional Abilities and Goals: Independent: Patient completed the activities by him/herself, with or without an assistive device, with no assistance from a helper. Needed Some Help: Patient needed partial assistance from another person to complete activities. Dependent: A helper completed the activities for the patient. Unknown: Not Applicable: Self Care: Independent DME/Equipment: Bath Bench DME/Equipment Comments RW, rollater, [address] Self: Yes (days and nights) OT Current Status Subjective pt sitting in recliner chair upon OT arrival in no apparent distress. pt agreed to OT evaluation session. pt daughter present during evaluation. pt complains of no pain Current Glasses/Contacts: Yes Hearing Aids: No Hand Dominance: Right Upper Extremity ROM WFL Upper Extremity Coordination WFL Upper Extremity Sensation WFL Upper Extremity Strength WFL 4+/5 ADL-Treatment Therapy Code Descriptions/Definitions Functional [place] Measure: 0=Not Assessed/NA 4=Minimal Assistance 1=Total Assistance 5=Supervision or Setup 2=Maximal Assistance 6=Modified [place] 3=Moderate Assistance 7=Complete [place] Therapy Quality Codes: 6 Independent with activity with or without an assistive device 5 Patient requires set up or clean up by helper. Patient completes activity by themselves 4 Supervision or touching assist (CGA). [place] provide cues , steadying assist 3 The helper provides less than half the effort to complete the activity 2 The helper provides more than half the effort to complete the activity 1 Dependent. The helper does all the effort to complete an activity 7 Patient refused to complete or attempt activity 9 The patient did not perform the activity before the current illness or injury 88 Not attempted due to Medical conditions or safety concerns Eating (FIM): 7 Grooming (FIM): 4 (CGA for safety/. balance while using RW) Bathing (FIM): 4 (based in clincal judgement) Lower Body Dressing (FIM): 5 (sitting in recliner chair) Toileting (FIM): 5 (based on clinical judegement) Transfers (B, C, W/C) (FIM): 4 (CGA for safety./ balance) Other Treatments post OT evaluation pt agreed to OT TX Session with focus on increasing independence with functional transition of movements from sit to stand using RW in prep for toilet transfers. pt demo ability to perform 3X2 sit to stands with MIN VC for proper hand placement. noted SOB with activity . pt education on purse lip breathing. pt verbalize and demo understanding. noted pt O2 saturation decreased to 86% while wearing O2 2L NC during TX session. pt required 3 minutes rest break prior to O@ increasing to 94%. NSG was made aware, Education OT Patient Education: Energy conservation, Safety issues, Transfer techniques Teaching Recipient: Patient Teaching Methods: Demonstration, Discussion Response to Teaching: Verbalize Understanding, Return Demonstration OT Short Term Goals Short Term Goals Grooming(FIM): 5 Bathing(FIM): 5 Toileting(FIM): 5 Transfers (B,C,W/C) (FIM): 5 1=Demonstrate adherence to instructed precautions during ADL tasks. 2=Patient will verbalize/demonstrate understanding of assistive devices/ modifications for ADL. 3=Patient will improve strength/tolerance for activity to enable patient to perform ADL's. OT Long-Term Goals Sales And Marketing Director Goals Grooming(FIM): 7 Bathing(FIM): 6 Bathing Location: L Arm, R Arm, L Upper Leg, R Upper Leg, L Lower Leg ( including foot), R Lower Leg (including foot), Chest, Abdomen, Buttocks, Perineal Area Lower Body Dressing(FIM): 6 Toileting(FIM): 6 Transfers (B,C,W/C) (FIM): 6 Toilet/Commode Transfer(FIM): 6 1=Demonstrate adherence to instructed precautions during ADL tasks. 2=Patient will verbalize/demonstrate understanding of assistive devices/ modifications for ADL. 3=Patient will improve strength/tolerance for activity to enable patient to perform ADL's. OT Education/Plan Problem List/Assessment Assessment: Decreased Activ Tolerance, Impaired Funct Balance pt presents with functional limitations affecting areas of ADL/ functional transfers with deficits in: SOB with activity, limited activity tolerance, decrease dyn standing balance. pt would benefit from OT service to address above mention deficits and for safe transfer to home. anticipate d/c to home. Discharge Recommendations Plan/Recommendations: Continue POC Therapy D/C Recommendations: Home Independently Equpiment Recommendations-D/C: None Target Placement home Treatment Plan/Plan of Care Treatment,Training & Education: Yes Patient would benefit from OT for education, treatment and training to promote independence in ADL's, mobility, safety and/or upper extremity function for ADL' s. Plan of Care: ADL Retraining, Functional Mobility, UE Funct Exercise/Act Treatment Duration: Sep 08, 2018 Frequency: 5 times per week Estimated Hrs Per Day: .5 hour per day Agreement: Yes Rehab Potential: Good Time/GCodes Start Time: 10:55 Stop Time: 11:20 Billed Treatment Time EVM 15 minutes FA 1 unit, 10 minutes JOLENE DAVISON OT Sep 01, 2018 11:41
[2018-09-01] MEDS: NS IV 1000 ML 1,000 ML IV SCH ×2 (11:47→20:18)
[2018-09-01 14:50] LABS: ABG BASE EXCESS -5.5 MMOL/L (-2.5-2.5); ABG OXYGEN SATURATION 91 % (94-100); ABG PCO2 26 MMHG (35-45); ABG PH 7.45 (7.37-7.43); ABG PO2 59 MMHG (79-93); ABG TCO2 18.6 MMOL/L (21.0-31.0); ALLENS TEST POSITIVE; INSPIRED O2 2 L; VENTILATOR NO
[2018-09-01 14:51] LABS: PATIENT TEMP 98.4
--- NOTE | 2018-09-01 15:40 | Diagnostic Imaging Report ---
PROCEDURE: CT chest, abdomen, and pelvis without contrast. TECHNIQUE: Multiple contiguous axial images were obtained through the chest, abdomen, and pelvis without the use of intravenous contrast. Auto Exposure Controls were utilized during the CT exam to meet ALARA standards for radiation dose reduction. INDICATION: Heart failure and pneumonia. COMPARISON: No previous exam for direct comparison; however, the exam is correlated with the recent chest x-rays. FINDINGS: CHEST: There is groundglass and airspace opacity in the left upper lobe corresponding to the area of new radiographic density, consistent with acute infiltrate. There are superimposed chronic predominantly subpleural areas of scarring and interstitial disease, greatest in the posterior sulcal basilar portions of the lungs. This patient has a small amount of pleural fluid on the right and a trace amount of fluid on the left. There are a few small mediastinal lymph nodes which are likely reactive in nature with no dominant or suspect appearing soft tissue density mass. Elements of pulmonary edema in the lungs are suspected. The heart size is upper limits. ABDOMEN/PELVIS: There is integumentary edema as well as a small volume of nonloculated pelvic free fluid. The bladder is decompressed around the [place]. There is no free air. There is no evidence for bowel, biliary, or urinary tract obstruction. The spleen size is within the upper limits of normal. There is a nonobstructing calculus in a left upper pole renal calyx and a right lower pole calyx. No hydronephrosis. No abscess or loculated fluid collection. The pancreas is unremarkable. We acknowledge sensitivity limitations owing to the absence of contrast as well as substantial degrees of motion artifact. No inflammatory process, obstructive feature, loculated collection, or acute finding is identified. No findings to suggest an abdominal/pelvic source of any active infection. IMPRESSION: CHEST: Groundglass and airspace opacity in the left upper lobe is suspect for pneumonia. Elements of edema diffusely superimposed upon chronic lung disease are suspected. Tiny pleural effusions and mild reactive shotty adenopathy. ABDOMEN/PELVIS: Integumentary and mesenteric edema. Small volume of free fluid, nonloculated. No bowel, biliary, or urinary tract obstruction with nonobstructing kidney stones. No perforation. No evidence for an abscess. Dictated by: Dictated on workstation # [id number]
--- NOTE | 2018-09-01 17:14 | NUR ---
PT NOTED TO BE IN A-FIB ON TELEMETRY, EKG OBTAINED, DR WALLACE NOTIFIED OF A-FIB WITH A CONTROLLED RATE IN 60-90'S, NO NEW ORDERS RECEIVED AT THIS TIME, PT DENIES ANY CHEST PAIN, SOA, OR DIZZINESS. DAUGHTER AT BEDSIDE, CALL LIGHT AND OTHER PERSONAL ITEMS WITHIN REACH WILL CONTINUE TO MONITOR.
--- NOTE | 2018-09-01 17:54 | CONSULTATION REPORT ---
DATE OF SERVICE: 09/01/2018 The patient is admitted to ICU bed #10. PHYSICIAN REQUESTING CONSULTATION: Alison Madden DO IMPRESSION: 1. The patient is a 73-year-old male, who was admitted to the hospital with increasing shortness of breath. He was noted to have hypoproliferative anemia and Hematology consultation was requested. 2. Previous history of sepsis and multiorgan failure, approximately 3 years ago. 3. Chronic kidney disease stage III. RECOMMENDATIONS: 1. Obtain peripheral smear, reticulocyte count, serum iron studies prior to transfusion. 2. Agree with PRBC transfusion because of symptomatic anemia. 3. We will obtain protein electrophoresis, serum light chain ratio and quantitative immunoglobulins. Because of mild to moderate rouleaux formation noted on the peripheral smear. 4. Continue management of probable pneumonia as you are doing with broad spectrum antibiotics. 5. I will await the results of the pending lab work before making definitive recommendations. BRIEF HISTORY: The patient is a 73-year-old male, who complained of several days of worsening shortness of breath. He was evaluated by his primary physician and had a CBC done with markedly low hemoglobin level. He was sent to the emergency room at [facility] for further evaluation and management. He was noted to have moderate anemia and symptoms of shortness of breath. He was admitted to the hospital for further management. Baseline lab works were obtained at the time of admission and he was transfused with two units of packed red blood cells yesterday evening. He is feeling slightly better, but still has shortness of breath. Hematology consultation was requested for further evaluation and management. He denied any fevers or chills. No night sweats. Activity level has been limited, but stable. He denied any obvious hematochezia or melena. PAST MEDICAL HISTORY: Significant for diabetes mellitus type 2 diagnosed approximately 30 years ago. He is on oral agents with fair control. He gave a history of sepsis with multiorgan failure approximately 3 years ago. He was admitted to [facility] in [place]. He required dialysis initially, but his renal function recovered. PRIOR SURGERIES: Include a tonsillectomy in childhood. Exploratory laparoscopy during admission to [facility] three years ago. No other surgeries. SOCIAL HISTORY: The patient is [place]. He has two children, a son and a daughter, both of whom live close by. He was in the [employer] for 3 years immediately prior to [place] War. Following this, he worked in [employer] for several years and at the [employer] for nine years. He gave a history of exposure to coolant while he was working at [employer]. He denied any other exposure to chemicals. FAMILY HISTORY: Is unremarkable with no hematologic problems or malignancies that the patient knows of. PHYSICAL EXAMINATION: GENERAL: Showed an elderly male, awake and oriented, mild discomfort because of the shortness of breath. VITAL SIGNS: He was afebrile, pulse rate of 83, respirations 24, blood pressure 128/60, oxygen saturation of 94% on 2 liters of oxygen by nasal cannula. HEENT: Normocephalic, extraocular muscles intact, conjunctivae slightly pale, oral mucosa moist. NECK: Supple with no JVD. No cervical, supraclavicular or axillary lymphadenopathy palpable. CHEST: Symmetrical. LUNGS: With slight rhonchi in the bases without wheezes or rales. CARDIOVASCULAR: Regular in rate and rhythm without murmurs or gallops. ABDOMEN: Slightly distended, soft, nontender with no hepatosplenomegaly or other masses palpable. EXTREMITIES: Showed no edema, ecchymosis or petechiae. NEUROLOGIC: Grossly intact without focal motor deficits. LABORATORY DATA: CBC done at the emergency room yesterday evening showed a white count of 11.0, hemoglobin 7.1, MCV 97, RDW 25, platelet count of 179,000 with neutrophil count of 9.0 and lymphocyte count of 0.8. I reviewed the peripheral smear, which showed mild hypochromia and anisocytosis. Some large cells were noted. Mild rouleaux formation was noted. Platelets appeared unremarkable. White blood cells appeared unremarkable except for reactive lymphocytes. No immature cells identified. Absolute reticulocyte count was 47,000. Chemistry panel done at the time of admission showed potassium level of 5.8, chloride 114 and CO2 16. BUN was elevated at 36 and creatinine 1.66 with GFR 41 mL per minute. Glucose was 190. AST was elevated at 48 and alkaline phosphatase at 137. Rest of the liver function studies within normal limits. Troponin was 0.066 with BNP elevated at 1240.9. Lactic acid level was elevated at 4.03 with repeat of 2.9 and 2.5 respectively. Serum LDH was elevated at 474. TSH was normal at 1.89. Serum iron studies and erythropoietin level is pending. Chest x-ray showing alveolar or interstitial parenchymal infiltrates along the periphery of each lung base. No previous films for comparison. Thank you for allowing me to participate in this patient's care. I will follow the patient with you and make appropriate recommendations. Job ID: [id number] DocumentID: [id number] Dictated Date: 09/01/2018 16:02:48 Mechanic Senior Date: 09/01/2018 17:54:24 Dictated By: PARIS BAJWA MD
--- NOTE | 2018-09-01 20:39 | Consultation ---
History of Present Illness History of Present Illness Patient Consulted On(daija/time) 09/01/18 20:33 Date Seen by Provider: Sep 01, 2018 Time Seen by Provider: 07:50 History of Present Illness COnsult requested by Dr. Reed for occult + stool, anemia Patient is a 73 year old male who was admitted for bradycardia and pneumonia. Patient found to have anemia which he states has had in the past. To his knowledge he has never had a colonoscopy or egd. He does not see any blood in his stools. Patient with some shortness of air. Not really had a cough. Denies any abdominal pain. Patient feels weak and this has continued to worsen. Patient reports activity makes overall situation worse, and doing nothing seems to help some. Denies n/v fever sweats chills or chest pain at this time. CT chest abd/ pelvi, left upper lung pneumonia, mesentery some edema but otherwise normal Allergies and Home Medications Allergies Coded Allergies: No Known Drug Allergies (Unverified , 08/31/18) Home Medications Aspirin 81 Mg Tablet.dr, 81 MG PO DAILY, (Reported) Ferrous Sulfate 325 Mg Tablet, 325 MG PO DAILY, (Reported) Ibuprofen 200 Mg Tablet, 600 MG PO TID PRN for PAIN-MILD, (Reported) Metformin HCl 1,000 Mg Tablet, 1,000 MG PO BID, (Reported) Multivit-Min/Folic/Vit K/Lycop 1 Each Tablet, 1 TAB PO DAILY, (Reported) [place]-3/Dha/Epa/Fish Oil 1 Each Capsule, 1 CAP PO BID, (Reported) Zolpidem Tartrate 10 Mg Tablet, 10 MG PO HS, (Reported) Patient Home Medication List Home Medication List Reviewed: Yes Past Hnrwzuk-Ojtdsy-Ishznd Hx Patient Social History Alcohol Use: Denies Use Recreational Drug Use: No Smoking Status: Former Smoker Type Used: Smokeless Tobacco Recent Foreign Travel: No Contact w/Someone Who Travel: No Recent Infectious Disease Expo: No Recent Hopitalizations: No Immunizations Up To Date Tetanus Booster (TDap): Unknown PED Vaccines UTD: Yes Date of Pneumonia Vaccine: Aug 23, 2014 Seasonal Allergies Seasonal Allergies: No Surgeries History of Surgeries: Yes (EXPLORATORY LAP) Surgeries: Tonsillectomy Respiratory History of Respiratory Disorde: Yes Respiratory Disorders: Pneumonia Cardiovascular History of Cardiac Disorders: No Neurological History of Neurological Disord: No Genitourinary History of Genitourinary Disor: No Gastrointestinal History of Gastrointestinal Di: No Musculoskeletal History of Musculoskeletal Dis: No Endocrine History of Endocrine Disorders: Yes Endocrine Disorders: Diabetes, Non-Insulin dep HEENT History of HEENT Disorders: No Cancer History of Cancer: No Psychosocial History of Psychiatric Problem: No Integumentary History of Skin or Integumenta: No Family Medical History Significant Family History: No Pertinent Family Hx Review of Systems-General Constitutional: see HPI EENTM: no symptoms reported Respiratory: see HPI Cardiovascular: no symptoms reported Gastrointestinal: no symptoms reported Genitourinary: no symptoms reported Musculoskeletal: no symptoms reported Skin: no symptoms reported Psychiatric/Neurological: No Symptoms Reported Physical Exam-General Problems Physical Exam Vital Signs Vital Signs - First Documented 08/31/18 14:00 Temp 97.7 Pulse 57 Resp 20 B/P (MAP) 104/51 (68) Pulse Ox 92 O2 Delivery Room Air O2 Flow Rate 2.00 Capillary Refill : Less Than 3 Seconds General Appearance: no apparent distress HEENT: PERRL/EOMI, normal ENT inspection Neck: non-tender, full range of motion, supple Respiratory: chest non-tender, other (coarse left) Cardiovascular: regular rate, rhythm Gastrointestinal: non tender, soft, no organomegaly Rectal: deferred Back: normal inspection, no CVA tenderness Extremities: non-tender, normal inspection, no pedal edema, no calf tenderness Neurologic/Psychiatric: varnish melter helper II-XII nml as tested, no motor/sensory deficits, alert, normal mood/affect, oriented x 3 Skin: normal color, warm/dry Lymphatic: no adenopathy Data Review Labs Laboratory Tests 08/31/18 20:35: Lactic Acid Level 2.50*H 08/31/18 20:45: Glucometer 195H 08/31/18 23:15: Lactic Acid Level 1.99 08/31/18 23:40: Stool Occult Blood Immunoassay POSITIVEH 09/01/18 03:15: White Blood Count 9.8, Red Blood Count 2.90L, Hemoglobin 8.3L, Hematocrit 27L, Mean Corpuscular Volume 93, Mean Corpuscular Hemoglobin 29, Mean Corpuscular Hemoglobin Concent 31L, Red Cell Distribution Width 24.3H, Platelet Count 151, Mean Platelet Volume 10.7H, Neutrophils (%) (Auto) 79H, Lymphocytes (%) (Auto) 10L, Monocytes (%) (Auto) 9, Eosinophils (%) (Auto) 1, Basophils (%) (Auto) 0, Neutrophils # (Auto) 7.7, Lymphocytes # (Auto) 1.0, Monocytes # (Auto) 0.9, Eosinophils # (Auto) 0.1, Basophils # (Auto) 0.0, Sodium Level 142, Potassium Level 4.5, Chloride Level 112H, Carbon Dioxide Level 18L, Anion Gap 12, Blood Urea Nitrogen 39H, Creatinine 1.74H, Estimat Glomerular Filtration Rate 39, BUN/ Creatinine Ratio 22, Glucose Level 200H, Calcium Level 8.9, Phosphorus Level 3.8 , Magnesium Level 1.9 09/01/18 05:43: Hemoglobin 8.2L, Hematocrit 26L 09/01/18 05:45: 09/01/18 09:56: Glucometer 263H 09/01/18 11:48: Lab Scanned Report Transfusion Reaction Form 09/01/18 14:13: Glucometer 303H 09/01/18 14:40: Blood Gas Puncture Site RIGHT RADIAL, Blood Gas Patient Temperature 98.4, Arterial Blood pH 7.45H, Arterial Blood Partial Pressure CO2 26L, Arterial Blood Partial Pressure O2 59L, Arterial Blood HCO3 18L, Arterial Blood Total CO2 18.6L, Arterial Blood Oxygen Saturation 91L, Arterial Blood Base Excess - 5.5L, Linus Test POSITIVE, Blood Gas Ventilator Setting NO, Blood Gas Inspired Oxygen 2 L 09/01/18 16:50: Hemoglobin 8.0L, Hematocrit 26L 09/01/18 18:00: Glucometer 337H Microbiology 08/31/18 Blood Culture - Preliminary, Resulted No growth 08/31/18 Urine Culture - Preliminary, Resulted Mixed Bacterial Sarika With Escherichia coli Assessment/Plan Assessment/Plan Assessment/Plan occult + stool anemia left upper lung pneumonia patient follow hgb transfuse prn On protonix if continues to drop would rec egd/colonoscopy inpatient vs outpatient will follow at this time. Due to pneumonia would be best to let him get over this first. Clinical Quality Measures DVT/VTE Risk/Contraindication: Risk Factor Score Per Nursin RFS Level Per Nursing on Admit: 4+=Very High ADÁN AMAYA DO Sep 01, 2018 20:39
[2018-09-02] VITALS (21 sets, daily range): BP systolic 102–145; BP diastolic 56–102
[2018-09-02] MEDS: RT-ALBUTEROL/IPRATROPIUM 3 ML (DUONEB) VIAL INH SCH ×7 (01:57→22:20)
[2018-09-02] MEDS: PIPERACILLIN/TAZO 4.5 GM/NS 100 ML IV SCH ×6 (02:15→17:09)
[2018-09-02 04:28] LABS: BASOPHILS % (AUTO) 0 % (0-10); EOSINOPHILS # (AUTO) 0.2 10^3/uL (0.0-0.3); EOSINOPHILS % (AUTO) 3 % (0-10); HEMATOCRIT 25 % (40-54); HEMOGLOBIN 7.7 G/DL (13.3-17.7); LYMPHOCYTES # (AUTO) 0.7 X 10^3 (1.0-4.0); LYMPHOCYTES % (AUTO) 8 % (12-44); MEAN CORPUSCULAR HEMOGLOBIN 29 PG (25-34); MEAN CORPUSCULAR HGB CONC 31 G/DL (32-36); MEAN CORPUSCULAR VOLUME 93 FL (80-99); MEAN PLATELET VOLUME 9.9 FL (7.4-10.4); MONOCYTES # (AUTO) 0.8 X 10^3 (0.0-1.0); MONOCYTES % (AUTO) 9 % (0-12); NEUTROPHILS # (AUTO) 6.6 X 10^3 (1.8-7.8); NEUTROPHILS % (AUTO) 80 % (42-75); PLATELET COUNT 113 10^3/uL (130-400); RED CELL DISTRIBUTION WIDTH 24.2 % (10.0-14.5); WHITE BLOOD COUNT 8.3 10^3/uL (4.3-11.0)
[2018-09-02 04:50] LABS: CALCIUM 7.6 MG/DL (8.5-10.1); CREATININE SERUM 1.2 MG/DL (0.60-1.30); MAGNESIUM 1.5 MG/DL (1.8-2.4); PHOSPHORUS 2.7 MG/DL (2.3-4.7); POTASSIUM 3.7 MMOL/L (3.6-5.0)
[2018-09-02] MEDS: MAGNESIUM 1 GM/100 ML IVPB 100 ML IV SCH (05:38)
[2018-09-02] MEDS: inSUlin ASPART (NovoLOG) 1 UNIT/0.01 ML (CHARGE PER UNIT) SC SCH ×4 (05:55→20:10)
[2018-09-02] MEDS ORDERED: FUROSEMIDE 40 MG/4 ML INJ (LASIX) IVP NR (06:45)
--- NOTE | 2018-09-02 06:49 | Cardiology Progress Note ---
Subjective Date Seen by Provider: Sep 02, 2018 Time Seen by Provider: 06:45 Subjective/Events-last exam patient is sitting in bed, comfortable, mild dyspnea, eating breakfast. Denied any chest pain. No dizziness. Went to atrial fibrillation yesterday, rate is controlled Review of Systems General: No Chills, No Night Sweats; Fatigue; No Malaise, No Appetite, No Other HEENT: No Head Aches, No Visual Changes, No Eye Pain, No Ear Pain, No Dysphasia , No Sinus Congestion, No Post Nasal Drip, No Sore Throat, No Other Pulmonary: Dyspnea; No Cough, No Pleuritic Chest Pain, No Other Cardiovascular: No: Chest Pain, Palpitations, Orthopnea, Paroxysmal Noc. Dyspnea, Edema, Lt Headedness, Other Focused Exam Lactate Level 08/31/18 18:45: Lactic Acid Level 2.90*H 08/31/18 20:35: Lactic Acid Level 2.50*H 08/31/18 23:15: Lactic Acid Level 1.99 Objective-Cardiology Exam Last Set of Vital Signs Vital Signs 09/01/18 09/02/18 16:13 06:00 Temp 98.0 Pulse 71 Resp 26 B/P (MAP) 145/65 (91) Pulse Ox 95 O2 Delivery Nasal Cannula O2 Flow Rate 3.00 Capillary Refill : Less Than 3 Seconds I&O Intake and Output 09/02/18 00:00 Intake Total 3250 ml Output Total 3475 ml Balance -225 ml Intake Oral 2130 ml IV Total 1120 ml Output Urine Total 3475 ml General: Alert, Oriented X3, Cooperative HEENT: Atraumatic, PERRLA Neck: Supple, No JVD, No Thyromegaly Lungs: Clear to Auscultation, Normal Air Movement Heart: Normal S1, Normal S2, No Murmurs, Other (atrial fibrillation) Abdomen: Normal Bowel Sounds, Soft, No Tenderness, No Hepatosplenomegaly, No Masses Extremities: No Clubbing, No Cyanosis, No Edema, Normal Pulses, No Tenderness/ Swelling Skin: No Rashes, No Breakdown, No Significant Lesion Neuro: Normal Gait, Normal Speech, Strength at 5/5 X4 Ext, Normal Tone, Sensation Intact Psych/Mental Status: Mental Status NL, Mood NL Results Lab Laboratory Tests 09/01/18 16:50 09/02/18 04:20 A/P-Cardiology Admission Diagnosis Generalized weakness Sick sinus syndrome Pneumonia Lactic acidosis Assessment/Plan Generalized weakness and loss of energy. Secondary to comorbid condition Sick sinus syndrome, intermittent sinus bradycardia, paroxysmal atrial fibrillation, currently in atrial fibrillation with controlled rate without any medication. Continue to monitor. Cannot tolerate oral anticoagulation due to the active bleeding. Anemia, worsening, I will give one dose of Lasix and monitor H&H, cannot tolerate anticoagulation at this time. [id number] score of 2, yearly risk of stroke without oral anticoagulation is 2.2 percent. Currently cannot take anticoagulation due to active bleeding. Congestive heart failure, acute left ventricular systolic dysfunction, ejection fraction 45 percent, I will give one dose of Lasix and evaluate tolerance and response. Pneumonia, receiving Zosyn, chest x-ray appeared worse today. Continue with antibiotics Metabolic and lactic acidosis, improving. Continue to monitor Acute on chronic renal failure, renal function is better. Stop IV fluid and monitor tolerance and response Hyperkalemia, better, continue to monitor electrolytes COPD, questionable pulmonary fibrosis, seen and managed by Dr. Reed Clinical Quality Measures DVT/VTE Risk/Contraindication: Risk Factor Score Per Nursin RFS Level Per Nursing on Admit: 4+=Very High TA WALLACE MD Sep 02, 2018 06:49
[2018-09-02] MEDS ORDERED: GOLYTELY POWDER 4000 ML BTL PO NR (09:00)
[2018-09-02] MEDS: PANTOPRAZOLE 40 MG (PROTONIX) VIAL IV SCH ×2 (09:11→20:10)
--- NOTE | 2018-09-02 10:03 | Progress Note ---
Subjective Date Seen by a Provider: Sep 02, 2018 Time Seen by a Provider: 09:59 Subjective/Events-last exam Patient in Afib. Occult + No abdominal pain. some loose stools. denies n/v fever sweats chills shortness of breath or chest pain. Slight drop in hgb 7.7 Focused Exam Lactate Level 08/31/18 18:45: Lactic Acid Level 2.90*H 08/31/18 20:35: Lactic Acid Level 2.50*H 08/31/18 23:15: Lactic Acid Level 1.99 Objective Exam Vital Signs Date Time Temp Pulse Resp B/P (MAP) Pulse Ox O2 Delivery O2 Flow Rate FiO2 09/02/18 09:00 76 24 126/70 (88) 94 Nasal Cannula 4.00 09/02/18 08:00 67 21 137/62 (87) 97 Nasal Cannula 4.00 09/02/18 08:00 97 Nasal Cannula 4.00 09/02/18 07:00 81 22 128/73 (91) 95 Nasal Cannula 4.00 09/02/18 07:00 59 09/02/18 06:50 96 Nasal Cannula 5.50 09/02/18 06:00 71 26 145/65 (91) 95 Nasal Cannula 3.00 09/02/18 05:00 82 24 132/68 (89) 96 Nasal Cannula 3.00 09/02/18 04:00 96 Nasal Cannula 4.00 09/02/18 04:00 80 23 112/60 (77) 94 Nasal Cannula 3.00 09/02/18 03:00 68 24 103/60 (74) 94 Nasal Cannula 3.00 09/02/18 02:00 80 20 123/63 (83) 98 Nasal Cannula 3.00 09/02/18 01:57 95 Nasal Cannula 5.50 09/02/18 01:00 75 09/02/18 01:00 70 24 117/60 (79) 96 Nasal Cannula 3.00 09/02/18 00:00 96 Nasal Cannula 4.00 09/02/18 00:00 77 24 122/57 (78) 96 Nasal Cannula 3.00 09/01/18 23:00 75 26 123/62 (82) 96 Nasal Cannula 3.00 09/01/18 22:00 76 29 127/59 (81) 95 Nasal Cannula 3.00 09/01/18 21:47 96 Nasal Cannula 5.50 09/01/18 21:00 71 27 126/61 (82) 95 Nasal Cannula 3.00 09/01/18 20:00 98 Nasal Cannula 4.00 09/01/18 20:00 91 28 128/56 (80) 93 Nasal Cannula 3.00 09/01/18 19:00 93 25 119/67 (84) 91 Nasal Cannula 3.00 09/01/18 19:00 79 09/01/18 18:20 92 Nasal Cannula 3.00 09/01/18 18:06 96 22 119/71 (87) Nasal Cannula 3.00 09/01/18 18:00 81 22 126/25 (58) 92 Nasal Cannula 3.00 09/01/18 17:00 76 20 126/61 (82) 95 Nasal Cannula 3.00 09/01/18 16:13 98.0 74 18 133/65 (87) 94 Nasal Cannula 3.00 09/01/18 16:02 98 Nasal Cannula 3.00 09/01/18 15:13 83 24 128/60 (82) Nasal Cannula 3.00 09/01/18 14:45 94 Nasal Cannula 2.00 09/01/18 14:00 86 30 124/69 (87) 91 Nasal Cannula 2.00 09/01/18 13:01 87 09/01/18 13:00 86 30 124/69 (87) 91 Nasal Cannula 2.00 09/01/18 12:00 94 20 138/97 (111) 98 Nasal Cannula 2.00 09/01/18 12:00 93 Nasal Cannula 2.00 09/01/18 11:59 97.4 09/01/18 11:00 85 21 149/85 (106) 92 Nasal Cannula 2.00 09/01/18 10:48 96 Nasal Cannula 2.00 09/01/18 10:00 80 32 152/75 (100) 95 Nasal Cannula 2.00 I & O 09/02/18 07:00 Intake Total 3670 ml Output Total 2275 ml Balance 1395 ml Capillary Refill : Less Than 3 Seconds General Appearance: No Apparent Distress, Chronically ill, Thin HEENT: PERRL/EOMI, Normal ENT Inspection, Pharynx Normal, Moist Mucous Membranes Neck: Full Range of Motion, Normal Inspection, Non Tender Respiratory: Chest Non Tender, No Accessory Muscle Use, No Respiratory Distress , Crackles, Decreased Breath Sounds Cardiovascular: Irregularly Irregular Gastrointestinal: non tender, soft, no organomegaly Extremity: Normal Capillary Refill, Normal Inspection, Normal Range of Motion, Non Tender, No Calf Tenderness, No Pedal Edema Neurologic/Psychiatric: Alert, Oriented x3, No Motor/Sensory Deficits, Normal Mood/Affect Skin: Normal Color, Warm/Dry Lymphatic: No Adenopathy Results Lab Laboratory Tests 09/01/18 11:48: Lab Scanned Report Transfusion Reaction Form 09/01/18 14:13: Glucometer 303H 09/01/18 14:40: Blood Gas Puncture Site RIGHT RADIAL, Blood Gas Patient Temperature 98.4, Arterial Blood pH 7.45H, Arterial Blood Partial Pressure CO2 26L, Arterial Blood Partial Pressure O2 59L, Arterial Blood HCO3 18L, Arterial Blood Total CO2 18.6L, Arterial Blood Oxygen Saturation 91L, Arterial Blood Base Excess - 5.5L, Linus Test POSITIVE, Blood Gas Ventilator Setting NO, Blood Gas Inspired Oxygen 2 L 09/01/18 16:50: Hemoglobin 8.0L, Hematocrit 26L 09/01/18 18:00: Glucometer 337H 09/02/18 04:20: White Blood Count 8.3, Red Blood Count 2.64L, Hemoglobin 7.7L, Hematocrit 25L, Mean Corpuscular Volume 93, Mean Corpuscular Hemoglobin 29, Mean Corpuscular Hemoglobin Concent 31L, Red Cell Distribution Width 24.2H, Platelet Count 113L, Mean Platelet Volume 9.9, Neutrophils (%) (Auto) 80H, Lymphocytes (%) (Auto) 8L , Monocytes (%) (Auto) 9, Eosinophils (%) (Auto) 3, Basophils (%) (Auto) 0, Neutrophils # (Auto) 6.6, Lymphocytes # (Auto) 0.7L, Monocytes # (Auto) 0.8, Eosinophils # (Auto) 0.2, Basophils # (Auto) 0.0, Sodium Level 139, Potassium Level 3.7, Chloride Level 112H, Carbon Dioxide Level 19L, Anion Gap 8, Blood Urea Nitrogen 25H, Creatinine 1.20, Estimat Glomerular Filtration Rate 59, BUN/ Creatinine Ratio 21, Glucose Level 224H, Calcium Level 7.6L, Phosphorus Level 2.7, Magnesium Level 1.5L 09/02/18 09:12: Glucometer 262H Microbiology 08/31/18 Blood Culture - Preliminary, Resulted No growth 08/31/18 Urine Culture - Preliminary, Resulted Mixed Bacterial Sarika With Escherichia coli Assessment/Plan Assessment/Plan Assessment/Plan occult + stool anemia left upper lung pneumonia afib patient follow hgb transfuse prn On protonix discussed risks and benefits of egd/colonoscopy all other indicated procedures and wishes to proceed. Discussed with Dr. Cm who would like to proceed so he can start anticoagulation for afib clear liquids today, go lytely consent egd/colonoscopy npo after midnight. Clinical Quality Measures DVT/VTE Risk/Contraindication: Risk Factor Score Per Nursin RFS Level Per Nursing on Admit: 4+=Very High ADÁN AMAYA DO Sep 02, 2018 10:03
--- NOTE | 2018-09-02 10:40 | Progress Note-Hospitalist ---
Subjective HPI/CC On Admission Date Seen by Provider: Sep 02, 2018 Time Seen by Provider: 10:00 Chief compliant: Shortness of breath HPI: This is a 73yoWM clinic pt of Dr. Lepe who has a history of chronic anemia , presented to the ER from clinic due to low hgb level of the 3 range but he was found to have hgb of 7.8 but positive hemoccult so he was placed in the ICU for CHF, acute renal failure, and a multitude of other organ system failure and was placed on oxygen and pulmonology was also consulted. Dr. Alexander has been consulted for hemoccult positive stools and anemia. He did receive transfusion without complication. He does live at home with his of 49.5 years and his daughter is at the bedside. Subjective/Events-last exam Had an episode of atrial fibrillation so he remains in the ICU. Tolerating treatments well. Overall very frail and cachectic. Pt tolerating antibiotics. Checked meds and labs. Bowels are moving. Urinary catheter still in place. Review of Systems General: Fatigue Pulmonary: Dyspnea Cardiovascular: Palpitations Focused Exam Lactate Level 08/31/18 18:45: Lactic Acid Level 2.90*H 08/31/18 20:35: Lactic Acid Level 2.50*H 08/31/18 23:15: Lactic Acid Level 1.99 Objective Exam Vital Signs Vital Signs Date Time Temp Pulse Resp B/P (MAP) Pulse Ox O2 Delivery O2 Flow Rate FiO2 09/02/18 16:03 104 26 115/56 (75) 83 Nasal Cannula 4.00 09/01/18 16:13 98.0 Capillary Refill : Less Than 3 Seconds General Appearance: No Apparent Distress, Chronically ill, Thin HEENT: PERRL/EOMI, Normal ENT Inspection, Pharynx Normal, Moist Mucous Membranes Neck: Full Range of Motion, Normal Inspection, Non Tender Respiratory: Chest Non Tender, No Accessory Muscle Use, No Respiratory Distress , Crackles, Decreased Breath Sounds Cardiovascular: Irregularly Irregular Gastrointestinal: Normal Bowel Sounds, No Organomegaly, No Pulsatile Mass, Non Tender, Soft Back: Normal Inspection, No CVA Tenderness, No Vertebral Tenderness Extremity: Normal Capillary Refill, Normal Inspection, Normal Range of Motion, Non Tender, No Calf Tenderness, No Pedal Edema Neurologic/Psychiatric: Alert, Oriented x3, No Motor/Sensory Deficits, Normal Mood/Affect Skin: Normal Color, Warm/Dry Lymphatic: No Adenopathy Results/Procedures Lab Laboratory Tests 09/02/18 04:20 Patient resulted labs reviewed. Assessment/Plan Assessment and Plan Assess & Plan/Chief Complaint Assessment: Pneumonia Lung disease Acute renal failure Metabolic lactic acidosis GIB consulting Dr Catherine Rodgers with bradycardia Former tobacco use Plan: Monitor Hgb Appreciate Pulmo, Card, surgery Cardiology to manage RVR May be an IRF candidate in the future Diagnosis/Problems Diagnosis/Problems (1) Bilateral pneumonia Status: Acute Qualifiers: Pneumonia type: due to unspecified organism Lung location: lower lobe of lung Qualified Codes: J18.1 - Lobar pneumonia, unspecified organism (2) Bradycardia Status: Acute (3) Anemia Status: Acute Qualifiers: Anemia type: unspecified type Qualified Codes: D64.9 - Anemia, unspecified (4) Acute renal failure Status: Acute Qualifiers: Acute renal failure type: unspecified Qualified Codes: N17.9 - Acute kidney failure, unspecified (5) Acute hyperkalemia Status: Acute (6) Acute heart failure Status: Acute Qualifiers: Heart failure type: unspecified Qualified Codes: I50.9 - Heart failure, unspecified Clinical Quality Measures DVT/VTE Risk/Contraindication: Risk Factor Score Per Nursin RFS Level Per Nursing on Admit: 4+=Very High SONIDO CRAIN DO Sep 02, 2018 10:40
--- NOTE | 2018-09-02 10:42 | Physical Therapy Daily Note ---
PT Daily Note-Current Subjective Patient reports fatigue, however, agrees to PT. Mental Status Patient Orientation: Normal For Age Attachments: Oxygen, Alarcon Catheter, IV Transfers Therapy Code Descriptions/Definitions Functional [place] Measure: 0=Not Assessed/NA 4=Minimal Assistance 1=Total Assistance 5=Supervision or Setup 2=Maximal Assistance 6=Modified [place] 3=Moderate Assistance 7=Complete [place] Therapy Quality Codes: 6 Independent with activity with or without an assistive device 5 Patient requires set up or clean up by helper. Patient completes activity by themselves 4 Supervision or touching assist (CGA). Naylor provide cues , steadying assist 3 The helper provides less than half the effort to complete the activity 2 The helper provides more than half the effort to complete the activity 1 Dependent. The helper does all the effort to complete an activity 7 Patient refused to complete or attempt activity 9 The patient did not perform the activity before the current illness or injury 88 Not attempted due to Medical conditions or safety concerns Transfers (B, C, W/C) (FIM): 5 Scootin Sit to/from Stand: 5 Weight Bearing Right Lower Extremity: Right Weight Bearing/Tolerated Left Lower Extremity: Left Weight Bearing/Tolerated Exercises Seated Therapy Exercises: Ankle pumps, Long arc quads, Hip flexion Seated Reps: 15 Standing: Marching Standing Reps: 15 Assessment Patient's SAO2 decreases to 78% on O2 with minimal activity requiring recovery periods to regain SAO2 >90%. PT to increase activity as patient tolerates. PT Short Term Goals Short Term Goals Time Frame: Sep 08, 2018 Transfers (B,C,W/C) (FIM): 5 Gait (FIM): 5 Gait Distance Comment: 150' Gait Level of Assist: 5 Gait Assistive Device: FWW PT Plan Treatment/Plan Treatment Plan: Continue Plan of Care Treatment Plan: Bed Mobility, Education, Functional Activity [place], Functional Strength, Gait, Safety, Therapeutic Exercise, Transfers Treatment Duration: Sep 08, 2018 Frequency: 6 times per week Estimated Hrs Per Day: .25 hour per day (15-30') Patient and/or Family Agrees t: Yes Time/GCodes Time In: 943 Time Out: 953 Total Billed Treatment Time: 10 Total Billed Treatment 1 visit EX 10 min ERA ANGEL PT Sep 02, 2018 10:42
--- NOTE | 2018-09-02 10:45 | NUR ---
Pastoral care visit.
--- NOTE | 2018-09-02 11:34 | Diagnostic Imaging Report ---
INDICATION: Dyspnea COMPARISON: 09/01/2018 FINDINGS: 5 lobe infiltrates greater left than right are not substantially changed when differing film penetration taken into account. No pneumothorax. The heart size stable. Right IJ catheter at the SVC. IMPRESSION: Unchanged 5 lobe pulmonary opacities and support apparatus. Dictated by: Dictated on workstation # [id number]
--- NOTE | 2018-09-02 12:59 | Occupational Ther Daily Note ---
OT Current Status-Daily Note Subjective pt lying in bed upon OT arrival in no apparent distress. pt agreed to OT TX session with focus on increasing independence with ADLs. pt complains of no pain throughout session Mental Status/Objective Therapy Code Descriptions/Definitions Functional [place] Measure: 0=Not Assessed/NA 4=Minimal Assistance 1=Total Assistance 5=Supervision or Setup 2=Maximal Assistance 6=Modified [place] 3=Moderate Assistance 7=Complete [place] Attachments: Alarcon Catheter, IV ADL-Treatment Grooming (FIM): 5 (setup of items ) Bathing (FIM): 5 (close SPV for safety. balance. (sponge bath)) Bathing Location: L Arm, R Arm, L Upper Leg, R Upper Leg, L Lower Leg ( including foot), R Lower Leg (including foot), Chest, Abdomen, Buttocks, Perineal Area Lower Body Dressing (FIM): 5 (SPV for safety/ balance) Transfers (B, C, W/C) (FIM): 5 (use of RW. pt required MIN VC for proper hand placement/ safety) Other Treatment noted decrease activity tolerance during OT TX session. pt education on energy conservation techniques including pursed lip breathing. pt verbalized understanding but still required MOD VC to utilize technique within task. Education OT Patient Education: Energy conservation, Modified ADL techniques, Purpose of tx/functional activities, Safety issues, Transfer techniques Teaching Recipient: Patient Teaching Methods: Demonstration, Discussion Response to Teaching: Return Demonstration OT Short Term Goals Short Term Goals Grooming(FIM): 5 Bathing(FIM): 5 Toileting(FIM): 5 Transfers (B,C,W/C) (FIM): 5 1=Demonstrate adherence to instructed precautions during ADL tasks. 2=Patient will verbalize/demonstrate understanding of assistive devices/ modifications for ADL. 3=Patient will improve strength/tolerance for activity to enable patient to perform ADL's. OT Bleach Packer Goals Correction Goals Grooming(FIM): 7 Bathing(FIM): 6 Bathing Location: L Arm, R Arm, L Upper Leg, R Upper Leg, L Lower Leg ( including foot), R Lower Leg (including foot), Chest, Abdomen, Buttocks, Perineal Area Lower Body Dressing(FIM): 6 Toileting(FIM): 6 Transfers (B,C,W/C) (FIM): 6 Toilet/Commode Transfer(FIM): 6 1=Demonstrate adherence to instructed precautions during ADL tasks. 2=Patient will verbalize/demonstrate understanding of assistive devices/ modifications for ADL. 3=Patient will improve strength/tolerance for activity to enable patient to perform ADL's. OT Education/Plan Problem List/Assessment pt is making progress toward goals. pt continue to presents with functional limitations affecting areas of ADL/ functional transfers with deficits in: SOB with activity, and limited activity tolerance, pt would benefit from continued OT service to address above mention deficits and for safe transfer to home. anticipate d/c to home. Discharge Recommendations Plan/Recommendations: Continue POC Therapy D/C Recommendations: Home w/ Family Support Treatment Plan/Plan of Care Treatment,Training & Education: Yes Patient would benefit from OT for education, treatment and training to promote independence in ADL's, mobility, safety and/or upper extremity function for ADL' s. Plan of Care: ADL Retraining, Functional Mobility, UE Funct Exercise/Act Treatment Duration: Sep 08, 2018 Frequency: 5 times per week Estimated Hrs Per Day: .5 hour per day Agreement: Yes Rehab Potential: Good Time/GCodes Start Time: 09:00 Stop Time: 09:25 Billed Treatment Time ADL 2 units, 25 minutes JOLENE DAVISON OT Sep 02, 2018 12:59
[2018-09-02 14:40] LABS: PARAINFLU 2 PCR Not Detected (Not Detected)
--- NOTE | 2018-09-02 23:26 | NUR ---
E-ICU contacted, notified of pt's continued increasing work of breathing throughout shift. IS done with pt, breathing exercises done, o2 increased to 6L per NC, see interventions.
[2018-09-03] VITALS (18 sets, daily range): BP systolic 106–136; BP diastolic 56–97
[2018-09-03] MEDS: PIPERACILLIN/TAZO 4.5 GM/NS 100 ML IV SCH ×6 (01:09→17:48)
[2018-09-03] MEDS: RT-ALBUTEROL/IPRATROPIUM 3 ML (DUONEB) VIAL INH SCH ×6 (01:12→22:27)
[2018-09-03 03:16] LABS: BASOPHILS % (AUTO) 0 % (0-10); EOSINOPHILS # (AUTO) 0.2 10^3/uL (0.0-0.3); EOSINOPHILS % (AUTO) 2 % (0-10); HEMATOCRIT 25 % (40-54); HEMOGLOBIN 7.8 G/DL (13.3-17.7); LYMPHOCYTES # (AUTO) 0.6 X 10^3 (1.0-4.0); LYMPHOCYTES % (AUTO) 6 % (12-44); MEAN CORPUSCULAR HEMOGLOBIN 29 PG (25-34); MEAN CORPUSCULAR HGB CONC 31 G/DL (32-36); MEAN CORPUSCULAR VOLUME 93 FL (80-99); MEAN PLATELET VOLUME 9.8 FL (7.4-10.4); MONOCYTES # (AUTO) 0.6 X 10^3 (0.0-1.0); MONOCYTES % (AUTO) 6 % (0-12); NEUTROPHILS # (AUTO) 8.2 X 10^3 (1.8-7.8); NEUTROPHILS % (AUTO) 85 % (42-75); PLATELET COUNT 122 10^3/uL (130-400); RED CELL DISTRIBUTION WIDTH 23.6 % (10.0-14.5); WHITE BLOOD COUNT 9.7 10^3/uL (4.3-11.0)
[2018-09-03 03:35] LABS: BUN/CREATININE RATIO 20; CALCIUM 7.5 MG/DL (8.5-10.1); CARBON DIOXIDE 17 MMOL/L (21-32); CHLORIDE 108 MMOL/L (98-107); CREATININE SERUM 0.95 MG/DL (0.60-1.30); GFR ESTIMATED > 60; GLUCOSE 145 MG/DL (70-105); MAGNESIUM 1.3 MG/DL (1.8-2.4); POTASSIUM 3.4 MMOL/L (3.6-5.0); SODIUM 140 MMOL/L (135-145)
[2018-09-03 04:33] LABS: ANISOCYTOSIS MODERATE; EOSINOPHILS % (MANUAL) 3 %; LYMPHOCYTES % (MANUAL) 3 %; MONOCYTES % (MANUAL) 5 %; NEUTROPHILS % (MANUAL) 89 %
[2018-09-03] MEDS: MAGNESIUM 1 GM/100 ML IVPB 100 ML IV SCH ×5 (04:33→07:47)
[2018-09-03] MEDS ORDERED: POTASSIUM CL 10MEQ/50ML IVPB 200 ML IV ONE (04:41)
[2018-09-03] MEDS: POTASSIUM CL 10MEQ/50ML IVPB 50 ML IV SCH ×4 (04:47→07:48)
[2018-09-03] MEDS: inSUlin ASPART (NovoLOG) 1 UNIT/0.01 ML (CHARGE PER UNIT) SC SCH ×4 (05:56→21:21)
--- NOTE | 2018-09-03 06:15 | Diagnostic Imaging Report ---
INDICATION: Shortness of breath Portable chest 11:51 PM Right IJ central line tip projects over the cavoatrial junction. Heart size is normal. There are diffuse infiltrates in the lungs. There are no effusions. IMPRESSION: Diffuse pulmonary infiltrates appear slightly worse than exam from earlier in the day. Dictated by: Dictated on workstation # [id number]
[2018-09-03 06:57] LABS: PARAINFLU 1 PCR Not Detected (Not Detected); RSV PCR Not Detected (Not Detected)
[2018-09-03] MEDS: PANTOPRAZOLE 40 MG (PROTONIX) VIAL IV SCH ×2 (07:56→21:20)
[2018-09-03] MEDS ORDERED: LACTATED RINGERS 1,000 ML IV PRN (09:14)
--- NOTE | 2018-09-03 09:15 | Progress Note ---
Subjective Date Seen by a Provider: Sep 03, 2018 Time Seen by a Provider: 09:13 Subjective/Events-last exam Patient doing okay on vapotherm, Maintain o2 sat. Denies any abdominal pain. Hgb 7.7. Plan for egd/colonoscopy today. Denies n/v fever sweats chills or chest pain at this time. Focused Exam Lactate Level 08/31/18 18:45: Lactic Acid Level 2.90*H 08/31/18 20:35: Lactic Acid Level 2.50*H 08/31/18 23:15: Lactic Acid Level 1.99 Objective Exam Vital Signs Date Time Temp Pulse Resp B/P (MAP) Pulse Ox O2 Delivery O2 Flow Rate FiO2 09/03/18 08:00 77 29 115/58 (77) 92 Vapotherm 50.00 30.00 09/03/18 08:00 93 Vapotherm 30.00 50 09/03/18 07:00 70 09/03/18 07:00 77 25 106/57 (73) 91 Vapotherm 50.00 30.00 09/03/18 06:40 80 90 50 09/03/18 06:35 90 Vapotherm 30.00 50 09/03/18 06:04 82 26 116/60 (78) 90 Vapotherm 50.00 30.00 09/03/18 05:02 85 24 117/57 (77) 90 Vapotherm 50.00 30.00 09/03/18 04:00 93 Vapotherm 30.00 50 09/03/18 04:00 83 28 124/66 (85) 96 Vapotherm 50.00 30.00 09/03/18 03:29 98.9 09/03/18 03:00 83 35 124/71 (88) 92 Vapotherm 50.00 30.00 09/03/18 02:00 80 20 122/64 (83) 92 Vapotherm 50.00 30.00 09/03/18 01:12 93 Vapotherm 30.00 50 09/03/18 01:00 76 09/03/18 01:00 76 27 126/60 (82) 90 Vapotherm 50.00 30.00 09/03/18 00:20 76 24 100 Vapotherm 50.00 30.00 09/03/18 00:00 77 39 136/64 (88) 100 Vapotherm 100.00 30.00 09/03/18 00:00 93 Vapotherm 30.00 100 09/02/18 23:52 91 Vapotherm 30.00 100 09/02/18 23:48 88 18 96 Vapotherm 100.00 30.00 09/02/18 23:24 99.8 Nasal Cannula 6.00 09/02/18 23:00 76 31 122/61 (81) 92 Nasal Cannula 5.00 09/02/18 22:20 91 Nasal Cannula 5.00 09/02/18 22:00 79 14 126/66 (86) 89 Nasal Cannula 5.00 09/02/18 21:00 67 29 119/59 (79) 90 Nasal Cannula 5.00 09/02/18 20:00 91 Nasal Cannula 5.00 09/02/18 20:00 72 33 119/67 (84) 91 Nasal Cannula 5.00 09/02/18 19:30 98.1 Nasal Cannula 5.00 09/02/18 19:09 90 Nasal Cannula 6.00 09/02/18 19:00 83 09/02/18 19:00 64 26 129/64 (85) 93 Nasal Cannula 5.00 09/02/18 18:05 64 26 139/67 (91) 93 Nasal Cannula 4.00 09/02/18 17:00 73 19 90 Nasal Cannula 4.00 09/02/18 16:03 104 26 115/56 (75) 83 Nasal Cannula 4.00 09/02/18 16:03 93 Nasal Cannula 5.50 09/02/18 15:23 95 Nasal Cannula 4.00 09/02/18 15:00 121 50 77 Nasal Cannula 4.00 09/02/18 14:00 105 24 89 Nasal Cannula 4.00 09/02/18 13:00 79 29 136/102 (113) 89 Nasal Cannula 4.00 09/02/18 13:00 70 09/02/18 12:00 67 27 109/73 (85) 89 Nasal Cannula 4.00 09/02/18 11:51 97 Nasal Cannula 4.00 09/02/18 11:00 73 25 120/63 (82) 95 Nasal Cannula 4.00 09/02/18 10:26 96 Nasal Cannula 5.50 09/02/18 10:00 79 24 102/98 (99) 88 Nasal Cannula 4.00 I & O 09/03/18 07:00 Intake Total 3195 ml Output Total 3000 ml Balance 195 ml Capillary Refill : Less Than 3 Seconds General Appearance: No Apparent Distress, Chronically ill, Thin HEENT: PERRL/EOMI, Normal ENT Inspection, Pharynx Normal, Moist Mucous Membranes Neck: Full Range of Motion, Normal Inspection, Non Tender Respiratory: Chest Non Tender, No Accessory Muscle Use, No Respiratory Distress , Crackles, Decreased Breath Sounds Cardiovascular: Regular Rate, Rhythm Gastrointestinal: non tender, soft, no organomegaly Extremity: Normal Capillary Refill, Normal Inspection, Normal Range of Motion, Non Tender, No Calf Tenderness, No Pedal Edema Neurologic/Psychiatric: Alert, Oriented x3, No Motor/Sensory Deficits, Normal Mood/Affect Skin: Normal Color, Warm/Dry Lymphatic: No Adenopathy Results Lab Laboratory Tests 09/02/18 15:08: Glucometer 166H 09/02/18 20:09: Glucometer 182H 09/03/18 03:10: White Blood Count 9.7, Red Blood Count 2.68L, Hemoglobin 7.8L, Hematocrit 25L, Mean Corpuscular Volume 93, Mean Corpuscular Hemoglobin 29, Mean Corpuscular Hemoglobin Concent 31L, Red Cell Distribution Width 23.6H, Platelet Count 122L, Mean Platelet Volume 9.8, Neutrophils (%) (Auto) 85H, Lymphocytes (%) (Auto) 6L , Monocytes (%) (Auto) 6, Eosinophils (%) (Auto) 2, Basophils (%) (Auto) 0, Neutrophils # (Auto) 8.2H, Lymphocytes # (Auto) 0.6L, Monocytes # (Auto) 0.6, Eosinophils # (Auto) 0.2, Basophils # (Auto) 0.0, Neutrophils % (Manual) 89, Lymphocytes % (Manual) 3, Monocytes % (Manual) 5, Eosinophils % (Manual) 3, Anisocytosis MODERATE, Sodium Level 140, Potassium Level 3.4L, Chloride Level 108H, Carbon Dioxide Level 17L, Anion Gap 15H, Blood Urea Nitrogen 19H, Creatinine 0.95, Estimat Glomerular Filtration Rate > 60, BUN/Creatinine Ratio 20, Glucose Level 145H, Calcium Level 7.5L, Phosphorus Level 2.0L, Magnesium Level 1.3L Microbiology 08/31/18 Blood Culture - Preliminary, Resulted No growth 09/01/18 MRSA Screen - Final, Complete MRSA not isolated 08/31/18 Urine Culture - Final, Complete Mixed Bacterial Sarika With Escherichia coli Assessment/Plan Assessment/Plan Assessment/Plan occult + stool anemia left upper lung pneumonia afib patient follow hgb transfuse prn On protonix discussed risks and benefits of egd/colonoscopy all other indicated procedures and wishes to proceed. consent egd/colonoscopy npo Clinical Quality Measures DVT/VTE Risk/Contraindication: Risk Factor Score Per Nursin RFS Level Per Nursing on Admit: 4+=Very High ADÁN AMAYA DO Sep 03, 2018 09:15
--- NOTE | 2018-09-03 09:18 | Progress Note-Hospitalist ---
Subjective HPI/CC On Admission Date Seen by Provider: Sep 03, 2018 Time Seen by Provider: 11:00 Chief compliant: Shortness of breath HPI: This is a 73yoWM clinic pt of Dr. Lepe who has a history of chronic anemia , presented to the ER from clinic due to low hgb level of the 3 range but he was found to have hgb of 7.8 but positive hemoccult so he was placed in the ICU for CHF, acute renal failure, and a multitude of other organ system failure and was placed on oxygen and pulmonology was also consulted. Dr. Alexander has been consulted for hemoccult positive stools and anemia. He did receive transfusion without complication. He does live at home with his of 49.5 years and his daughter is at the bedside. Subjective/Events-last exam Patient ready for EGD and colonoscopy Cardiology wanted scopes done prior to starting on anticoagulation Patient reports doing a little better but overall significant debility as noted Light chains noted on w/u No further bloody stools Very debilitated Had sepsis and severe debility 3 yrs ago Review of Systems General: Fatigue Focused Exam Lactate Level 08/31/18 18:45: Lactic Acid Level 2.90*H 08/31/18 20:35: Lactic Acid Level 2.50*H 08/31/18 23:15: Lactic Acid Level 1.99 Objective Exam Vital Signs Vital Signs Date Time Temp Pulse Resp B/P (MAP) Pulse Ox O2 Delivery O2 Flow Rate FiO2 09/03/18 12:49 78 09/03/18 12:00 28 118/97 (104) 95 Vapotherm 50.00 30.00 09/03/18 08:00 50 09/03/18 03:29 98.9 Capillary Refill : Less Than 3 Seconds General Appearance: No Apparent Distress, Chronically ill, Thin HEENT: PERRL/EOMI, Normal ENT Inspection, Pharynx Normal, Moist Mucous Membranes Neck: Full Range of Motion, Normal Inspection, Non Tender Respiratory: Chest Non Tender, No Accessory Muscle Use, No Respiratory Distress , Crackles, Decreased Breath Sounds Cardiovascular: Regular Rate, Rhythm Gastrointestinal: Normal Bowel Sounds, No Organomegaly, No Pulsatile Mass, Non Tender, Soft Back: Normal Inspection, No CVA Tenderness, No Vertebral Tenderness Extremity: Normal Capillary Refill, Normal Inspection, Normal Range of Motion, Non Tender, No Calf Tenderness, No Pedal Edema Neurologic/Psychiatric: Alert, Oriented x3, No Motor/Sensory Deficits, Normal Mood/Affect Skin: Normal Color, Warm/Dry Lymphatic: No Adenopathy Results/Procedures Lab Laboratory Tests 09/03/18 03:10 Patient resulted labs reviewed. Assessment/Plan Assessment and Plan Assess & Plan/Chief Complaint Assessment: Pneumonia Lung disease Acute renal failure Metabolic lactic acidosis GIB consulting Dr Catherine Rodgers with bradycardia Former tobacco use Plan: Monitor Hgb Appreciate Pulmo, Card, surgery Cardiology appreciated May be an IRF candidate in the future Anticoagulation Oncology evaluation is appreciated since it appears possible MM Diagnosis/Problems Diagnosis/Problems (1) Bilateral pneumonia Status: Acute Qualifiers: Pneumonia type: due to unspecified organism Lung location: lower lobe of lung Qualified Codes: J18.1 - Lobar pneumonia, unspecified organism (2) Bradycardia Status: Acute (3) Anemia Status: Acute Qualifiers: Anemia type: unspecified type Qualified Codes: D64.9 - Anemia, unspecified (4) Acute renal failure Status: Acute Qualifiers: Acute renal failure type: unspecified Qualified Codes: N17.9 - Acute kidney failure, unspecified (5) Acute hyperkalemia Status: Acute (6) Acute heart failure Status: Acute Qualifiers: Heart failure type: unspecified Qualified Codes: I50.9 - Heart failure, unspecified Clinical Quality Measures DVT/VTE Risk/Contraindication: Risk Factor Score Per Nursin RFS Level Per Nursing on Admit: 4+=Very High SONIDO CRAIN DO Sep 03, 2018 09:18
[2018-09-03] MEDS ORDERED: MIDAZOLAM 2 MG/2 ML (VERSED) VIAL ONE (09:21)
[2018-09-03] MEDS ORDERED: PROPOFOL INJECTION 50 ML IV ONE (09:21)
[2018-09-03] MEDS ORDERED: FUROSEMIDE 40 MG/4 ML INJ (LASIX) ONE (09:36)
--- NOTE | 2018-09-03 09:43 | Cardiology Progress Note ---
Subjective Date Seen by Provider: Sep 03, 2018 Time Seen by Provider: 09:41 Subjective/Events-last exam Patient is in bed, still having dyspnea, no chest pain or palpitations, back in sinus rhythm Review of Systems General: No Chills, No Night Sweats, No Fatigue, No Malaise, No Appetite, No Other HEENT: No Head Aches, No Visual Changes, No Eye Pain, No Ear Pain, No Dysphasia , No Sinus Congestion, No Post Nasal Drip, No Sore Throat, No Other Pulmonary: Dyspnea, Cough; No Pleuritic Chest Pain, No Other Cardiovascular: No: Chest Pain, Palpitations, Orthopnea, Paroxysmal Noc. Dyspnea, Edema, Lt Headedness, Other Focused Exam Lactate Level 08/31/18 18:45: Lactic Acid Level 2.90*H 08/31/18 20:35: Lactic Acid Level 2.50*H 08/31/18 23:15: Lactic Acid Level 1.99 Objective-Cardiology Exam Last Set of Vital Signs Vital Signs 09/03/18 09/03/18 09/03/18 03:29 08:00 09:00 Temp 98.9 Pulse 75 Resp 33 B/P (MAP) 111/65 (80) Pulse Ox 89 O2 Delivery Vapotherm O2 Flow Rate 50.00 30.00 FiO2 50 Capillary Refill : Less Than 3 Seconds I&O Intake and Output 09/02/18 23:59 Intake Total 2575 ml Output Total 2875 ml Balance -300 ml Intake Oral 2335 ml IV Total 240 ml Output Urine Total 2875 ml # Bowel Movements 3 General: Alert, Oriented X3, Cooperative HEENT: Atraumatic, PERRLA Neck: Supple, No JVD, No Thyromegaly Lungs: Clear to Auscultation, Normal Air Movement Heart: Regular Rate, Normal S1, Normal S2, No Murmurs Abdomen: Normal Bowel Sounds, Soft, No Tenderness, No Hepatosplenomegaly, No Masses Extremities: No Clubbing, No Cyanosis, No Edema, Normal Pulses, No Tenderness/ Swelling Skin: No Rashes, No Breakdown, No Significant Lesion Neuro: Normal Gait, Normal Speech, Strength at 5/5 X4 Ext, Normal Tone, Sensation Intact Psych/Mental Status: Mental Status NL, Mood NL Results Lab Laboratory Tests 09/03/18 03:10 A/P-Cardiology Admission Diagnosis Generalized weakness Sick sinus syndrome Pneumonia Lactic acidosis Assessment/Plan Sick sinus syndrome, intermittent sinus bradycardia, paroxysmal atrial fibrillation, had an episode of atrial fibrillation yesterday, currently in sinus rhythm. An not tolerate oral anticoagulation due to active bleeding Shortness of breath, pneumonia, worsening chest x-ray with pulmonary edema. I' ll give additional dose of Lasix today and monitor tolerance and response Anemia, GI loss, scheduled for EGD colonoscopy today [id number] score of 2, yearly risk of stroke without oral anticoagulation is 2.2 percent. Currently cannot take anticoagulation due to active bleeding. Congestive heart failure, acute left ventricular systolic dysfunction, ejection fraction 45 percent, responding well to Lasix. Continue to monitor Hypokalemia, hypomagnesemia, being replaced. Pneumonia, receiving Zosyn, chest x-ray appeared worse today. managed by primary care physician Metabolic and lactic acidosis, improving. Continue to monitor Acute on chronic renal failure, renal function is better. Stop IV fluid and monitor tolerance and response COPD, questionable pulmonary fibrosis, seen and managed by Dr. Reed Clinical Quality Measures DVT/VTE Risk/Contraindication: Risk Factor Score Per Nursin RFS Level Per Nursing on Admit: 4+=Very High TA WALLACE MD Sep 03, 2018 09:43
[2018-09-03] MEDS ORDERED: FUROSEMIDE 40 MG/4 ML INJ (LASIX) IVP NR (09:45)
[2018-09-03] MEDS ORDERED: LACTATED RINGERS 1,000 ML IV ONE (09:56)
--- NOTE | 2018-09-03 11:25 | NUR ---
Pastoral care visit.
--- NOTE | 2018-09-03 11:27 | Physical Therapy Progress Note ---
Therapy Progress Note Attempted to see pt for PT tx, pt gone for procedure. PT will attempt in pm. SABINO LOMBARDI HEAD OF MARKETING ANALYTICS Sep 03, 2018 11:27
--- NOTE | 2018-09-03 11:31 | NUR ---
0950 PT TO ENDOSCOPY VIA W/C ACCOMPANIED BY ENDO STAFF AND FAMILY.
--- NOTE | 2018-09-03 11:32 | NUR ---
1120 PT BACK TO ROOM ICU 10 VIA W/C ACCOMPANIED BY ENDO STAFF. PT ASSISTED BACK TO BED AND POSITIONED PER COMFORT. DAUGHTER AT BEDSIDE. Addendum: 09/03/18 at 1133 by LASHONDA YING RN CALL LIGHT AND OTHER PERSONAL ITEMS WITHIN REACH.
--- NOTE | 2018-09-03 11:45 | Occupational Ther Daily Note ---
OT Current Status-Daily Note Subjective pt lying in bed upon OT Arrival. pt agreed to OT services with focus on increasing energery conservation/ UE strength for ADLS Mental Status/Objective Patient Orientation: Normal For Age Therapy Code Descriptions/Definitions Functional [place] Measure: 0=Not Assessed/NA 4=Minimal Assistance 1=Total Assistance 5=Supervision or Setup 2=Maximal Assistance 6=Modified [place] 3=Moderate Assistance 7=Complete [place] Attachments: Alarcon Catheter, IV, Oxygen, Telemetry Other Treatment pt education on importance of energy conservation.pt education on UE strengthening exercises against gravity. resistance not used secondary to pt decrease in O2 saturation. pt demo ability to perform shoulder flexion 10X2, shoulder ABB/ADD 10X2, elbow flex/ ext 10X2, wrist flex/ext 10X2 against gravity. noted pt O2 would decrease to 87% with activity. pt education on facilitating pursed lip within task. pt required MAX VC to complete pursed lip breathing. Additional timing secondary to limited activity tolerance/ decrease in O2 saturations. . pt REFUSED to complete functional transfers this date secondary to wanting to stay in bed for procedure later this AM. Education OT Patient Education: Energy conservation, Exercise program, Home exercise program, Progress toward Goal/Update tx plan, Purpose of tx/functional activities Teaching Recipient: Patient Teaching Methods: Demonstration, Discussion Response to Teaching: Verbalize Understanding, Return Demonstration OT Short Term Goals Short Term Goals Grooming(FIM): 5 Bathing(FIM): 5 Toileting(FIM): 5 Transfers (B,C,W/C) (FIM): 5 1=Demonstrate adherence to instructed precautions during ADL tasks. 2=Patient will verbalize/demonstrate understanding of assistive devices/ modifications for ADL. 3=Patient will improve strength/tolerance for activity to enable patient to perform ADL's. OT Director Of Sports Performance Goals Care Home Goals Grooming(FIM): 7 Bathing(FIM): 6 Bathing Location: L Arm, R Arm, L Upper Leg, R Upper Leg, L Lower Leg ( including foot), R Lower Leg (including foot), Chest, Abdomen, Buttocks, Perineal Area Lower Body Dressing(FIM): 6 Toileting(FIM): 6 Transfers (B,C,W/C) (FIM): 6 Toilet/Commode Transfer(FIM): 6 1=Demonstrate adherence to instructed precautions during ADL tasks. 2=Patient will verbalize/demonstrate understanding of assistive devices/ modifications for ADL. 3=Patient will improve strength/tolerance for activity to enable patient to perform ADL's. OT Education/Plan Problem List/Assessment pt is making progress toward goals. pt continue to presents with functional limitations affecting areas of ADL/ functional transfers with deficits in: SOB with activity, decrease O2 saturation with activity. and limited activity tolerance/ endurance. pt would benefit from continued OT service to address above mention deficits and for safe transfer to home. anticipate d/c to home. Discharge Recommendations Plan/Recommendations: Continue POC Therapy D/C Recommendations: Home w/ Family Support Treatment Plan/Plan of Care Treatment,Training & Education: Yes Patient would benefit from OT for education, treatment and training to promote independence in ADL's, mobility, safety and/or upper extremity function for ADL' s. Plan of Care: ADL Retraining, Functional Mobility, UE Funct Exercise/Act Treatment Duration: Sep 08, 2018 Frequency: 5 times per week Estimated Hrs Per Day: .5 hour per day Agreement: Yes Rehab Potential: Good Time/GCodes Start Time: 08:32 Stop Time: 08:58 Total Time Billed (hr/min): 26 Billed Treatment Time FA 2 units, 26 minutes JOLENE DAVISON OT Sep 03, 2018 11:45
--- NOTE | 2018-09-03 11:53 | NUR ---
NEW ORDERS RECEIVED VIA TELEPHONE FROM DR AMAYA FOR PT TO HAVE DYS 2 DIET.
--- NOTE | 2018-09-03 11:56 | NUR ---
LATE ENTRY: [id number] DR WALLACE ON FLOOR VERBAL ORDER RECEIVED TO GIVE LASIX 40MG IV X 1 DOSE NOW. MEDICATION PULLED AND GIVEN.
--- NOTE | 2018-09-03 13:55 | Physical Therapy Progress Note ---
Therapy Progress Note Pt sitting up in bed upon arrival. present and pt looking over meal menu. Pt reports feeling fatigued and asked to not complete PT at this time. CLOTH DYE RANGE OPERATOR went over a few basic Supine Ex pt can complete when less fatigued. Pt resting at end of tx. Time: 5354-0630 1, FA (8m) SABINO LOMBARDI CLOTH DYE RANGE OPERATOR Sep 03, 2018 13:55
--- NOTE | 2018-09-03 14:35 | Progress Note-Post Operative ---
Post-Operative Progess Note Surgeon (s)/Manager Case (s) Surgeon ADÁN AMAYA DO Manager Case: na Pre-Operative Diagnosis anemia occult +stool Post-Operative Diagnosis gastritis, hiatal hernia, esophageal varices, rectal polyp Procedure & Operative Findings Date of Procedure 09/03/18 Procedure Performed/Findings egd c biopsies, colonoscopy hot bx polypectomy Anesthesia Type per retail analytics manager Estimated Blood Loss Estimated blood loss (mL): scant Specimens/Packing Specimens Removed antrum, body, rectum ADÁN AMAYA DO Sep 03, 2018 14:35
--- NOTE | 2018-09-03 15:09 | Anesthesia-General Post-Op ---
MAC Patient Condition Mental Status/LOC: Same as Preop Cardiovascular: Satisfactory Nausea/Vomiting: Absent Respiratory: Satisfactory Pain: Controlled Complications: Absent Post Op Complications Complications None Follow Up Care/Instructions Patient Instructions None needed. Anesthesiology Discharge Order Discharge Order Patient is doing well, no complaints, stable vital signs, no apparent adverse anesthesia problems. No complications reported per nursing. MALENA FUENTES CRNA Sep 03, 2018 15:09
[2018-09-04] VITALS (7 sets, daily range): BP systolic 116–135; BP diastolic 54–85
[2018-09-04] MEDS: RT-ALBUTEROL/IPRATROPIUM 3 ML (DUONEB) VIAL INH SCH ×6 (00:57→22:36)
--- NOTE | 2018-09-04 01:01 | OPERATIVE REPORT ---
DATE OF SERVICE: 09/03/2018 PREOPERATIVE DIAGNOSIS: Anemia, occult positive stool. POSTOPERATIVE DIAGNOSES: Gastritis, hiatal hernia, esophageal varices, rectal polyp. PROCEDURE: EGD with biopsies, colonoscopy with hot biopsy polypectomy rectum. SURGEON: Adán Alexander DO ANESTHESIA: Per MANAGER ENGAGEMENT. ESTIMATED BLOOD LOSS: Scant. COMPLICATIONS: None. INDICATIONS: The patient is a 73-year-old male with an occult positive stool and anemia. He is in AFib and cardiology is going to start anticoagulation. The patient understands risks and benefits of procedure and wished to proceed with procedures. Consent was signed in the chart. PROCEDURE: The patient was taken to the endoscopy suite, placed in left lower recumbent position. Timeout was performed. Scope was inserted in mouth, down the esophagus, stomach and into the duodenum without difficulty. There were no polyps, mass or ulcerations within the duodenum. Scope was slowly retracted back into the stomach where it was further insufflated. Erythematous changes consistent with gastritis were present. Biopsies of the antrum and body were obtained. Scope was retroflexed noting a small hiatal hernia, no other pathology noted. Scope was returned to its normal position, slowly withdrawn to the distal esophagus, which had normal appearance. No polyps, mass or ulcerations. The scope was slowly retracted back. Within the esophagus multiple large varices were present. Scope was continuously slowly retracted back until completely removed, noting no other pathology. Digital rectal exam was performed. No palpable polyps, mass or ulcerations. The scope was inserted in the rectum and all the way to the cecum with minimal difficulty. Prep was adequate with irrigation and suction. Scope was then slowly retracted back. There were no polyps, mass or ulceration in the cecum, ascending, transverse, descending and sigmoid colon. Once in the rectum, small polyp was present, which hot biopsy polypectomy was performed. Scope was then inserted and retracted multiple times, noting no other pathology. Scope was then slowly retracted until completely removed, noting no other pathology. The patient is on Protonix. I would consider adding Carafate. The patient will follow up on pathology. Job ID: [id number] DocumentID: [id number] Dictated Date: 09/03/2018 14:47:48 Mechanical Estimator Date: 09/04/2018 01:01:21 Dictated By: ADÁN ALEXANDER DO
[2018-09-04] MEDS: PIPERACILLIN/TAZO 4.5 GM/NS 100 ML IV SCH ×4 (01:16→08:35)
[2018-09-04 03:57] LABS: BASOPHILS % (AUTO) 0 % (0-10); EOSINOPHILS # (AUTO) 0.2 10^3/uL (0.0-0.3); EOSINOPHILS % (AUTO) 2 % (0-10); HEMATOCRIT 25 % (40-54); HEMOGLOBIN 7.8 G/DL (13.3-17.7); LYMPHOCYTES # (AUTO) 0.5 X 10^3 (1.0-4.0); LYMPHOCYTES % (AUTO) 5 % (12-44); MEAN CORPUSCULAR HEMOGLOBIN 29 PG (25-34); MEAN CORPUSCULAR HGB CONC 32 G/DL (32-36); MEAN CORPUSCULAR VOLUME 93 FL (80-99); MEAN PLATELET VOLUME 10.3 FL (7.4-10.4); MONOCYTES # (AUTO) 0.6 X 10^3 (0.0-1.0); MONOCYTES % (AUTO) 7 % (0-12); NEUTROPHILS # (AUTO) 7.5 X 10^3 (1.8-7.8); NEUTROPHILS % (AUTO) 86 % (42-75); PLATELET COUNT 123 10^3/uL (130-400); RED CELL DISTRIBUTION WIDTH 23.5 % (10.0-14.5); WHITE BLOOD COUNT 8.8 10^3/uL (4.3-11.0)
[2018-09-04 04:12] LABS: BUN/CREATININE RATIO 15; CALCIUM 7.4 MG/DL (8.5-10.1); CARBON DIOXIDE 21 MMOL/L (21-32); CHLORIDE 106 MMOL/L (98-107); CREATININE SERUM 1.12 MG/DL (0.60-1.30); GFR ESTIMATED > 60; GLUCOSE 292 MG/DL (70-105); MAGNESIUM 2.2 MG/DL (1.8-2.4); PHOSPHORUS 1.9 MG/DL (2.3-4.7); POTASSIUM 3.6 MMOL/L (3.6-5.0); SODIUM 135 MMOL/L (135-145)
[2018-09-04] MEDS: inSUlin ASPART (NovoLOG) 1 UNIT/0.01 ML (CHARGE PER UNIT) SC SCH ×2 (06:32→12:05)
[2018-09-04] MEDS: PANTOPRAZOLE 40 MG (PROTONIX) VIAL IV SCH (08:35)
--- NOTE | 2018-09-04 09:07 | Cardiology Progress Note ---
Subjective Date Seen by Provider: Sep 04, 2018 Time Seen by Provider: 09:05 Subjective/Events-last exam patient is laying down in bed. Denied any chest pain. Feeling better today. Review of Systems General: No Chills, No Night Sweats, No Fatigue, No Malaise, No Appetite, No Other HEENT: No Head Aches, No Visual Changes, No Eye Pain, No Ear Pain, No Dysphasia , No Sinus Congestion, No Post Nasal Drip, No Sore Throat, No Other Pulmonary: Dyspnea, Cough; No Pleuritic Chest Pain, No Other Cardiovascular: Edema; No: Chest Pain, Palpitations, Orthopnea, Paroxysmal Noc. Dyspnea, Lt Headedness, Other Objective-Cardiology Exam Last Set of Vital Signs Vital Signs 09/04/18 09/04/18 09/04/18 04:00 06:48 08:00 Temp 99.0 Pulse 79 Resp 29 B/P (MAP) 130/63 (85) Pulse Ox 92 O2 Delivery Vapotherm O2 Flow Rate 50.00 30.00 FiO2 75 Capillary Refill : NONE I&O Intake and Output 09/04/18 00:00 Intake Total 2320 ml Output Total 1950 ml Balance 370 ml Intake Oral 1380 ml IV Total 940 ml Output Urine Total 1950 ml # Bowel Movements 4 General: Alert, Oriented X3, Cooperative HEENT: Atraumatic, PERRLA Neck: Supple, No JVD, No Thyromegaly Lungs: Clear to Auscultation, Normal Air Movement Heart: Regular Rate, Normal S1, Normal S2, No Murmurs Abdomen: Normal Bowel Sounds, Soft, No Tenderness, No Hepatosplenomegaly, No Masses Extremities: No Clubbing, No Cyanosis, No Edema, Normal Pulses, No Tenderness/ Swelling Skin: No Rashes, No Breakdown, No Significant Lesion Neuro: Normal Gait, Normal Speech, Strength at 5/5 X4 Ext, Normal Tone, Sensation Intact Psych/Mental Status: Mental Status NL, Mood NL Results Lab Laboratory Tests 09/04/18 03:45 A/P-Cardiology Admission Diagnosis Generalized weakness Sick sinus syndrome Pneumonia Lactic acidosis Assessment/Plan Sick sinus syndrome, intermittent sinus bradycardia, paroxysmal atrial fibrillation, had an episode of atrial fibrillation yesterday, currently in sinus rhythm. Cannot tolerate oral anticoagulation due to active bleeding Shortness of breath, pneumonia, worsening chest x-ray with pulmonary edema. I' ll give additional dose of Lasix today and monitor tolerance and response Anemia, GI loss, EGD reported to have paresis and gastritis, managed by Dr. Alexander. [id number] score of 2, yearly risk of stroke without oral anticoagulation is 2.2 percent. Currently cannot take anticoagulation due to active bleeding. Congestive heart failure, acute left ventricular systolic dysfunction, ejection fraction 45 percent, responding well to Lasix. Continue to monitor Hypokalemia, hypomagnesemia, being replaced. Pneumonia, receiving Zosyn, chest x-ray appeared worse today. managed by primary care physician Metabolic and lactic acidosis, improving. Continue to monitor Acute on chronic renal failure, renal function is better, fluid balance appear to be stable at this time. Continue to monitor COPD, questionable pulmonary fibrosis, seen and managed by Dr. Reed Clinical Quality Measures DVT/VTE Risk/Contraindication: Risk Factor Score Per Nursin RFS Level Per Nursing on Admit: 4+=Very High TA WALLACE MD Sep 04, 2018 09:07
--- NOTE | 2018-09-04 09:27 | Physical Therapy Daily Note ---
PT Daily Note-Current Subjective Patient in bed pre tx, agrees to PT, has no complaints of pain. Nurse turns up vapotherm for activity, she states that his O2 sats go down just moving up in bed. Appearance Patient in bed post tx with nurse call, phone, tray, all needs met. Nurse in room. Mental Status Patient Orientation: Person, Place, Situation Attachments: Oxygen, Alarcon Catheter, IV vapotherm Transfers Therapy Code Descriptions/Definitions Functional [place] Measure: 0=Not Assessed/NA 4=Minimal Assistance 1=Total Assistance 5=Supervision or Setup 2=Maximal Assistance 6=Modified [place] 3=Moderate Assistance 7=Complete [place] Therapy Quality Codes: 6 Independent with activity with or without an assistive device 5 Patient requires set up or clean up by helper. Patient completes activity by themselves 4 Supervision or touching assist (CGA). [place] provide cues , steadying assist 3 The helper provides less than half the effort to complete the activity 2 The helper provides more than half the effort to complete the activity 1 Dependent. The helper does all the effort to complete an activity 7 Patient refused to complete or attempt activity 9 The patient did not perform the activity before the current illness or injury 88 Not attempted due to Medical conditions or safety concerns Transfers (B, C, W/C) (FIM): 5 Scootin Rollin Supine to/from Sit: 5 Sit to/from Stand: 5 Weight Bearing Right Lower Extremity: Right Weight Bearing/Tolerated Left Lower Extremity: Left Weight Bearing/Tolerated Exercises Standing: Heel/toe raises, Marching, Mini squats Standing Reps: 10 Treatments standing exercises, bed mobility, standing Assessment Current Status: Poor Progress Patient's O2 sat goes down to 80's during activity, takes several minutes to recover after laying down. PT Short Term Goals Short Term Goals Time Frame: Sep 08, 2018 Transfers (B,C,W/C) (FIM): 5 Gait (FIM): 5 Gait Distance Comment: 150' Gait Level of Assist: 5 Gait Assistive Device: FWW PT Plan Problem List Problem List: Activity Tolerance, Functional Strength, Safety, Balance, Gait, Transfer, Bed Mobility, ROM Treatment/Plan Treatment Plan: Continue Plan of Care Treatment Plan: Bed Mobility, Education, Functional Activity [place], Functional Strength, Gait, Safety, Therapeutic Exercise, Transfers Treatment Duration: Sep 08, 2018 Frequency: 6 times per week Estimated Hrs Per Day: .25 hour per day (15-30') Patient and/or Family Agrees t: Yes Safety Risks/Education Patient Education: Transfer Techniques, Correct Positioning, Safety Issues Teaching Recipient: Patient Teaching Methods: Demonstration, Discussion Response to Teaching: Reinforcement Needed Time/GCodes Time In: 911 Time Out: 923 Total Billed Treatment Time: 12 Total Billed Treatment 1 visit FA 12' LEYDI HOOD PT Sep 04, 2018 09:27
--- NOTE | 2018-09-04 10:55 | NUR ---
This RN walked into patient's room to reassess patient. This RN noted that patient's o2 was 93%. However, patient had increased work of breathing ans respiratory rate of 43. Patient is already on Vapotherm at 30L 100%Fio2. Patient tells this RN he is getting wore out. This RN called Dean in respiratory therapy to report. Dean RT suggests BIPAP and to call Dr. Madden. Will call Dr. Madden and continue to monitor.
--- NOTE | 2018-09-04 11:10 | NUR ---
Dr. Madden in room with this RN and RT Dean. Dr. Madden agrees to initiate BIPAP on patient but states to RT Dean verbal orders to check ABG's before putting patient on BIPAP. Dr. Madden states to this RN to order a BNP, Lactic acid, portable CXR and to notify Dr. Cm or patient's condition. Dean obtained ABG's from right radial artery and put patient on BIPAP at 1115 with the setting of 12/5 with fio2 of 75%. Patient tolerating BIPAP well rr-30 at this time all other vital signs are stable. Will continue to monitor.
[2018-09-04 11:25] LABS: ABG BASE EXCESS -3.5 MMOL/L (-2.5-2.5); ABG OXYGEN SATURATION 95 % (94-100); ABG PCO2 33 MMHG (35-45); ABG PH 7.41 (7.37-7.43); ABG PO2 72 MMHG (79-93); ABG TCO2 21.4 MMOL/L (21.0-31.0); ALLENS TEST YES-POS
[2018-09-04 11:26] LABS: INSPIRED O2 30L; PATIENT TEMP 99; VENTILATOR NO
[2018-09-04] MEDS ORDERED: FUROSEMIDE 40 MG/4 ML INJ (LASIX) IVP SCH (11:30)
--- NOTE | 2018-09-04 11:35 | Progress Note-Hospitalist ---
Subjective HPI/CC On Admission Date Seen by Provider: Sep 04, 2018 Time Seen by Provider: 11:00 Chief compliant: Shortness of breath HPI: This is a 73yoWM clinic pt of Dr. Lepe who has a history of chronic anemia , presented to the ER from clinic due to low hgb level of the 3 range but he was found to have hgb of 7.8 but positive hemoccult so he was placed in the ICU for CHF, acute renal failure, and a multitude of other organ system failure and was placed on oxygen and pulmonology was also consulted. Dr. Alexander has been consulted for hemoccult positive stools and anemia. He did receive transfusion without complication. He does live at home with his of 49.5 years and his daughter is at the bedside. Subjective/Events-last exam Respiratory status was worsening this morning when I arrived Recommended BiPAP of which RT placed Lactic acid normal complete blood count normal CMP normal but oliguria. 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 BiPAP placed but patient was failing since he was breathing 38 times a minute ABG reviewed it was remarkably stable but ensuing respiratory failure due to fatigue Patient has been very frail and complicated from the time of admission I spoke with [facility] Dr. Mejias who graciously accepted the transfer due to multisystem organ failure and spent 30 minutes compiling all the records and he accepted the admission. Family at the bedside with the patient they declined intubation made the patient DO NOT RESUSCITATE and patient was tired and just wanted to be let go. Transfer to [facility] ICU was canceled Review of Systems General: Fatigue Pulmonary: Dyspnea Focused Exam Lactate Level 09/04/18 11:45: Lactic Acid Level 1.92 Objective Exam Vital Signs Vital Signs Date Time Temp Pulse Resp B/P (MAP) Pulse Ox O2 Delivery O2 Flow Rate FiO2 09/04/18 14:20 84 46 94 75.00 09/04/18 14:00 134/85 (101) NIV Bilevel 09/04/18 11:15 75 09/04/18 04:00 99.0 Capillary Refill : NONE General Appearance: Anxious, Chronically ill, Severe Distress, Thin HEENT: PERRL/EOMI, Normal ENT Inspection, Pharynx Normal, Moist Mucous Membranes Neck: Full Range of Motion, Normal Inspection, Non Tender Respiratory: Chest Non Tender, Accessory Muscle Use, Crackles, Decreased Breath Sounds, Respiratory Distress, Wheezing Cardiovascular: Bradycardia, Irregularly Irregular, Tachycardia Gastrointestinal: Normal Bowel Sounds, No Organomegaly, No Pulsatile Mass, Non Tender, Soft Back: Normal Inspection, No CVA Tenderness, No Vertebral Tenderness Extremity: Normal Capillary Refill, Normal Inspection, Normal Range of Motion, Non Tender, No Calf Tenderness, No Pedal Edema Neurologic/Psychiatric: Alert, Oriented x3, No Motor/Sensory Deficits, Normal Mood/Affect Skin: Normal Color, Warm/Dry Lymphatic: No Adenopathy Results/Procedures Lab Laboratory Tests 09/04/18 03:45 Patient resulted labs reviewed. Assessment/Plan Assessment and Plan Assess & Plan/Chief Complaint Assessment: Multi-system organ failure in respiratory failure had been accepted in transfer to [place] but decided DNR and comfort care so canceled transfer Pneumonia on Zosyn Lung disease Acute renal failure Metabolic lactic acidosis GIB consulting Dr Catherine Rodgers with bradycardia Former tobacco use Plan: DNR Comfort care Poor prognosis Critical Care Critically Ill Patient Diagnosis/Problems Diagnosis/Problems (1) Multisystem organ failure Status: Acute (2) Poor prognosis Status: Acute (3) DNR (do not resuscitate) Status: Acute (4) Bilateral pneumonia Status: Acute Qualifiers: Pneumonia type: due to unspecified organism Lung location: lower lobe of lung Qualified Codes: J18.1 - Lobar pneumonia, unspecified organism (5) Bradycardia Status: Acute (6) Anemia Status: Acute Qualifiers: Anemia type: unspecified type Qualified Codes: D64.9 - Anemia, unspecified (7) Acute renal failure Status: Acute Qualifiers: Acute renal failure type: unspecified Qualified Codes: N17.9 - Acute kidney failure, unspecified (8) Acute hyperkalemia Status: Acute (9) Acute heart failure Status: Acute Qualifiers: Heart failure type: unspecified Qualified Codes: I50.9 - Heart failure, unspecified Clinical Quality Measures DVT/VTE Risk/Contraindication: Risk Factor Score Per Nursin RFS Level Per Nursing on Admit: 4+=Very High SONIDO CRAIN DO Sep 04, 2018 11:34
--- NOTE | 2018-09-04 11:40 | Progress Note ---
Subjective Time Seen by a Provider: 11:25 Subjective/Events-last exam Pt seen and examined, apparently he has been having trouble breathing all night. Pt denies abdominal pain and doesn't think his belly is any bigger than it has been. +BM Review of Systems General: Chills, Night Sweats, Fatigue, Malaise Pulmonary: Dyspnea; No Cough Cardiovascular: No: Chest Pain, Palpitations Gastrointestinal: No: Nausea, Vomiting, Abdominal Pain Objective Exam Vital Signs Date Time Temp Pulse Resp B/P (MAP) Pulse Ox O2 Delivery O2 Flow Rate FiO2 09/04/18 11:26 90 33 99 75.00 09/04/18 10:26 93 Vapotherm 30.00 100 09/04/18 08:30 92 Vapotherm 30.00 75 09/04/18 08:00 79 29 92 Vapotherm 50.00 30.00 09/04/18 08:00 116/63 (80) 09/04/18 07:00 85 09/04/18 06:48 90 Vapotherm 30.00 75 09/04/18 04:00 99.0 82 26 130/63 (85) 91 09/04/18 01:00 83 09/04/18 00:57 86 Vapotherm 30.00 75 09/04/18 00:46 Vapotherm 75.00 30.00 09/04/18 00:00 99.6 78 26 117/54 (75) 90 09/03/18 23:45 Vapotherm 65.00 30.00 09/03/18 22:27 91 Vapotherm 25.00 65 09/03/18 20:00 91 Vapotherm 25.00 65 09/03/18 20:00 100.2 85 21 115/58 (77) 91 Vapotherm 65.00 25.00 09/03/18 20:00 Vapotherm 65.00 25.00 09/03/18 19:47 91 25.00 65 09/03/18 19:47 Vapotherm 65.00 25.00 09/03/18 19:00 Vapotherm 30.00 50.00 09/03/18 19:00 91 09/03/18 18:46 91 Vapotherm 20.00 50 09/03/18 16:30 90 30.00 50 09/03/18 16:07 93 Vapotherm 30.00 50 09/03/18 16:07 99.5 76 22 114/57 (76) 91 Vapotherm 09/03/18 15:00 93 Vapotherm 30.00 50 09/03/18 15:00 70 27 113/61 (78) 95 Vapotherm 50.00 30.00 09/03/18 14:00 83 24 107/63 (78) 89 Vapotherm 50.00 30.00 09/03/18 13:00 75 33 108/56 (73) 95 Vapotherm 50.00 30.00 09/03/18 12:49 78 09/03/18 12:30 93 Vapotherm 30.00 50 09/03/18 12:00 77 28 118/97 (104) 95 Vapotherm 50.00 30.00 I & O 09/04/18 07:00 Intake Total 1950 ml Output Total 1985 ml Balance -35 ml Capillary Refill : NONE General Appearance: Chronically ill, Mild Distress, Thin HEENT: PERRL/EOMI; No Scleral Icterus (L), No Scleral Icterus (R) Respiratory: Chest Non Tender, Accessory Muscle Use, Crackles, Decreased Breath Sounds, Respiratory Distress, Other (tachypnea) Cardiovascular: No Murmur, Irregularly Irregular Gastrointestinal: non tender, soft, no organomegaly, other (belly appears distended) Extremity: Normal Capillary Refill, Non Tender, No Calf Tenderness, No Pedal Edema Neurologic/Psychiatric: Alert, Oriented x3 Results Lab Laboratory Tests 09/03/18 14:20: Glucometer 256H 09/04/18 03:45: White Blood Count 8.8, Red Blood Count 2.66L, Hemoglobin 7.8L, Hematocrit 25L, Mean Corpuscular Volume 93, Mean Corpuscular Hemoglobin 29, Mean Corpuscular Hemoglobin Concent 32, Red Cell Distribution Width 23.5H, Platelet Count 123L, Mean Platelet Volume 10.3, Neutrophils (%) (Auto) 86H, Lymphocytes (%) (Auto) 5L , Monocytes (%) (Auto) 7, Eosinophils (%) (Auto) 2, Basophils (%) (Auto) 0, Neutrophils # (Auto) 7.5, Lymphocytes # (Auto) 0.5L, Monocytes # (Auto) 0.6, Eosinophils # (Auto) 0.2, Basophils # (Auto) 0.0, Sodium Level 135, Potassium Level 3.6, Chloride Level 106, Carbon Dioxide Level 21, Anion Gap 8, Blood Urea Nitrogen 17, Creatinine 1.12, Estimat Glomerular Filtration Rate > 60, BUN/ Creatinine Ratio 15, Glucose Level 292H, Calcium Level 7.4L, Phosphorus Level 1.9L, Magnesium Level 2.2 09/04/18 11:20: Blood Gas Puncture Site RT RADIAL, Blood Gas Patient Temperature 99, Arterial Blood pH 7.41, Arterial Blood Partial Pressure CO2 33L, Arterial Blood Partial Pressure O2 72L, Arterial Blood HCO3 20L, Arterial Blood Total CO2 21.4, Arterial Blood Oxygen Saturation 95, Arterial Blood Base Excess -3.5L, Linus Test YES-POS, Blood Gas Ventilator Setting NO, Blood Gas Inspired Oxygen 30L Microbiology 08/31/18 Blood Culture - Preliminary, Resulted No growth 09/01/18 MRSA Screen - Final, Complete MRSA not isolated 08/31/18 Urine Culture - Final, Complete Mixed Bacterial Sarika With Escherichia coli Assessment/Plan Assessment/Plan Assessment/Plan Esophageal Varices Gastritis Anemia MASOOD pneumonia with pulmonary fibrosis afib Hgb is stable today and belly is soft; do not believe he is bleeding at this time. Continue protonix and IVF. Alarcon for accurate I&O's. Pt was increased to BiPap; maximum medical care. Clinical Quality Measures DVT/VTE Risk/Contraindication: Risk Factor Score Per Nursin RFS Level Per Nursing on Admit: 4+=Very High YOSELYN GOMEZ DO Sep 04, 2018 11:40
--- NOTE | 2018-09-04 11:45 | Diagnostic Imaging Report ---
EXAM: CHEST 1 VIEW, AP/PA ONLY INDICATION: Hypoxia. Shortness of air. COMPARISON: Chest radiograph 09/02/2018. FINDINGS: Diffuse interstitial and airspace opacities throughout both lungs have mildly progressed since the prior exam. Right IJ CVC tip near the RA SVC junction. Normal heart size and central pulmonary vascularity. No definite pleural effusion or pneumothorax. IMPRESSION: 1. Diffuse interstitial and airspace opacities have progressed since prior exam. 2. Stable right IJ CVC near the RA SVC junction. Dictated by: Dictated on workstation # [id number]
--- NOTE | 2018-09-04 12:57 | NUR ---
Notified Dr. Cm that patient had 3 episodes of bradycardia. Did EKG that revealed "Sinus or Ectopic atrial Rhythm". This RN also noted that patient is in more respiratory distress despite being on the BIPAP. Dr. Cm states that the patient needs to be intubated if respiratory status is still continuing to decline. Dr. Madden standing by this RN as this RN is talking with Dr. Cm. Dr. Madden states she wants to talk to Dr. Cm. This RN handed phone to Dr. Madden. Dr. Madden gets off phone and states "OK we will get him intubated and transfer him to [place] if patient wants those measures." Will talk with patient about the need to intubate and will continue to monitor.
--- NOTE | 2018-09-04 15:15 | NUR ---
Family here in room with patient this RN and MITALI Story. Daughter discusses patient's options of DNR vs intubation and transfer to [place]. Ultimately patient decides to be a DNR and to not intubate and to be made comfortable. Will call Dr. Madden to notify her of patient's wishes.
--- NOTE | 2018-09-04 15:22 | NUR ---
NOtified Dr. Madden of patient's wishes to be DNR and made comfortable as witnesses by this RN and Porsha RN. Dr. Madden states to D/c all meds except comfort care order set medications and to change patient from a BIPAP to a Nasal cannula at 4L to "make him more comfortable". also states patient can transfer to fourth floor to be comfort care.
[2018-09-04] MEDS ORDERED: SCOPOLAMINE 1.5 MG (TRANSDERM-SCOP) PATCH TOP SCH (15:30)
[2018-09-04] MEDS ORDERED: BISACODYL 10 MG SUPP (DULCOLAX) PR PRN (15:30)
[2018-09-04] MEDS ORDERED: SALIVA STIMULANT MOUTH SPRAY (BIOTENE) 1.5 OZ MM PRN (15:30)
[2018-09-04] MEDS ORDERED: ACETAMINOPHEN 650 MG SUPP (TYLENOL) PR PRN (15:30)
[2018-09-04] MEDS ORDERED: GLYCOPYRROLATE 0.2 MG/ML (ROBINUL) 2 ML VIAL IV PRN (15:30)
[2018-09-04] MEDS ORDERED: ONDANSETRON 4 MG/2 ML (SDV) Z0FRAN IVP PRN (15:30)
[2018-09-04] MEDS ORDERED: ATROPINE 1% OPHTHALMIC SOLN 2 ML SL PRN (15:30)
[2018-09-04] MEDS ORDERED: ARTIFICAL TEARS 0.4 ML UNIT DOSE (REFRESH PLUS) OU PRN (15:30)
--- NOTE | 2018-09-04 15:46 | NUR ---
RECEIVED REPORT FROM EZIO JASMINE. THIS RN TO ASSUME CARE OF PT FOR REMAINDER OF SHIFT. PT NOW COMFORT CARE STATUS, ALL MONITORS REMOVED FROM PT. PT HAS MULTIPLE FAMILY MEMBERS VISITING AT BEDSIDE. WILL CONT TO MONITOR.
--- NOTE | 2018-09-04 15:47 | NUR ---
Report given to MITALI Story. MITALI Story to assume care at this time.
[2018-09-04] MEDS: morphine INJ 4 MG/ML 1 ML (VIAL/SYRINGE) IV PRN ×4 (15:53→22:54)
[2018-09-04] MEDS: LORazepam INJ 2 MG/ML (ATIVAN) VIAL IVP PRN ×4 (16:37→22:54)
--- NOTE | 2018-09-04 18:00 | NUR ---
Pt transferred to room 420 at this time via bed. Pt awake and alert during transfer requesting Bipap continuation at this time. Family at bedside during this time. Bedside report given to Yumiko JASMINE who will assume pt care at this time.
--- NOTE | 2018-09-05 07:30 | Discharge Summary-Hospitalist ---
Diagnosis/Chief Complaint Date of Admission Aug 31, 2018 at 16:47 Date of Discharge Sep 04, 2018 at 23:32 Discharge Date: Sep 04, 2018 Discharge Time: 2330 Admission Diagnosis Assessment: Pneumonia Lung disease Acute renal failure Metabolic lactic acidosis GIB consulting Dr Catherine Rodgers with bradycardia Former tobacco use Plan: Monitor Hgb Appreciate Pulmo, Card, surgery Discharge Diagnosis (1) Multisystem organ failure Status: Acute (2) Poor prognosis Status: Acute (3) DNR (do not resuscitate) Status: Acute (4) Bilateral pneumonia Status: Acute (5) Bradycardia Status: Acute (6) Anemia Status: Acute (7) Acute renal failure Status: Acute (8) Acute hyperkalemia Status: Acute (9) Acute heart failure Status: Acute Discharge Summary Discharge Physical Exam Allergies: Coded Allergies: No Known Drug Allergies (Unverified , 08/31/18) Vitals & I&Os Vital Signs Date Time Temp Pulse Resp B/P (MAP) Pulse Ox O2 Delivery O2 Flow Rate FiO2 09/04/18 22:36 44 40.00 09/04/18 20:00 91 NIV Bilevel 75 09/04/18 14:20 84 09/04/18 14:00 134/85 (101) 09/04/18 04:00 99.0 General Appearance: Other () Hospital Course Was the Problem List Reviewed?: Yes Hospital course: Patient on a lengthy hospital course after admission from the ER on 08/31/18 due to severe anemia and shortness of breath. Patient was found to have bilateral pneumonia in addition to acute renal failure and severe anemia requiring transfusions. Hemoccult was positive so he did undergo EGD and colonoscopy revealing esophageal varices. Hematology consult suspected some sort of hematological malignancy likely multiple myeloma but tests were pending at time of decision to make him comfort care. He refused to be intubated placed on comfort care and with family at the bedside uneventfully. I had attempted to transfer him to [facility] and had obtained acceptance from but then the patient changed his mind refuse intubation and we canceled that transfer. Labs (last 24 hrs) Laboratory Tests 09/04/18 11:20: Blood Gas Puncture Site RT RADIAL, Blood Gas Patient Temperature 99, Arterial Blood pH 7.41, Arterial Blood Partial Pressure CO2 33L, Arterial Blood Partial Pressure O2 72L, Arterial Blood HCO3 20L, Arterial Blood Total CO2 21.4, Arterial Blood Oxygen Saturation 95, Arterial Blood Base Excess -3.5L, Linus Test YES-POS, Blood Gas Ventilator Setting NO, Blood Gas Inspired Oxygen 30L 09/04/18 11:45: Lactic Acid Level 1.92, B-Type Natriuretic Peptide 789.7H 09/04/18 12:00: Glucometer 259H Microbiology 08/31/18 Blood Culture - Preliminary, Resulted No growth 09/01/18 MRSA Screen - Final, Complete MRSA not isolated 08/31/18 Urine Culture - Final, Complete Mixed Bacterial Sarika With Escherichia coli Patient resulted labs reviewed. Discussion & Recommendations Discharge Planning: <30 minutes discharge planning Discharge Home Medications: Active Scripts Active Reported Advil (Ibuprofen) 200 Mg Tablet 600 Mg PO TID PRN Aspirin EC (Aspirin) 81 Mg Tablet.dr 81 Mg PO DAILY Ferrous Sulfate 325 Mg Tablet 325 Mg PO DAILY Fish Oil 1,000 mg Softgel ([place]-3/Dha/Epa/Fish Oil) 1 Each Capsule 1 Cap PO BID Men's Multivitamin Tablet (Multivit-Min/Folic/Vit K/Lycop) 1 Each Tablet 1 Tab PO DAILY Metformin HCl 1,000 Mg Tablet 1,000 Mg PO BID Ambien (Zolpidem Tartrate) 10 Mg Tablet 10 Mg PO HS Instructions to patient/family Please see electronic discharge instructions given to patient. Clinical Quality Measures DVT/VTE Risk/Contraindication: Risk Factor Score Per Nursin RFS Level Per Nursing on Admit: 4+=Very High Problem Qualifiers (1) Bilateral pneumonia: Pneumonia type: due to unspecified organism Lung location: lower lobe of lung Qualified Codes: J18.1 - Lobar pneumonia, unspecified organism (2) Anemia: Anemia type: unspecified type Qualified Codes: D64.9 - Anemia, unspecified (3) Acute renal failure: Acute renal failure type: unspecified Qualified Codes: N17.9 - Acute kidney failure, unspecified (4) Acute heart failure: Heart failure type: unspecified Qualified Codes: I50.9 - Heart failure, unspecified SONIDO CRAIN DO Sep 05, 2018 07:30
--- NOTE | 2018-09-07 12:23 | Physician Query Clarification ---
PQ-Further Specificity Admission/Discharge Admission Date: Aug 31, 2018 at 16:47 Discharge Date: Sep 04, 2018 at 23:32 The medical record reflects the following clinical scenario: History/Risk Factors: Acute systolic CHF, Pneumonia, Anemia,GIB Clinical Findings: Hgb 7.1, EGD/Colonoscopy - Esophageal varices, gastritis, rectal polyp Treatment: transfused 2 units Question: Can you further specify the etiology of the blood loss and anemia per the clinical indicators above? Please document below. 1. Multiple myeloma 2. Aplastic anemia 3. Esophageal varices with bleeding 4. Gastritis with bleeding 5. etiology of the blood loss and anemia unknown 6. Other, with explanation of the clinical findings. 7. Clinically undetermined, no explanation for the clinical findings. PHYSICIAN RESPONSE Can you specify per above: Other, explanation/clinical finding (4 ) In responding to this query, please exercise your independent professional judgment. The purpose of this communication is to more accurately reflect the complexity of your patients condition. The fact that a question is asked does not imply that any particular answer is desired or expected. Thank you for your timely response to this clarification. Requestors name: Tash THIS PHYSICIAN QUERY FORM IS A PERMANENT PART OF THE MEDICAL RECORD TASH SIMMONS Sep 07, 2018 12:23 SONIDO CRAIN DO Sep 07, 2018 14:55
--- NOTE | 2018-09-07 12:41 | Physician Query Clarification ---
PQ-Further Specificity Admission/Discharge Admission Date: Aug 31, 2018 at 16:47 Discharge Date: Sep 04, 2018 at 23:32 The medical record reflects the following clinical scenario: History/Risk Factors: Acute systolic heart failure, anemia,GIB, Pneumonia Clinical Findings: Hgb 7.1, BNP 1240.9, PH 7.45, PCo2 26, Po2 59, 4/11 CXR 5 lobe infiltrates lt greater than rt Treatment: transfused 2 units, Vapotherm, IV Lasix, IV Pipercillin Question: Can you further specify the cause of per the clinical indicators above? Please document below. 1. Respiratory failure 2. Multiple myeloma 3. Pneumonia 4. Acute systolic heart failure 5. Other, with explanation of the clinical findings. 6. Clinically undetermined, no explanation for the clinical findings. PHYSICIAN RESPONSE Can you specify per above: 1 In responding to this query, please exercise your independent professional judgment. The purpose of this communication is to more accurately reflect the complexity of your patients condition. The fact that a question is asked does not imply that any particular answer is desired or expected. Thank you for your timely response to this clarification. Requestors name: Tash THIS PHYSICIAN QUERY FORM IS A PERMANENT PART OF THE MEDICAL RECORD TASH SIMMONS Sep 07, 2018 12:41 SONIDO CRAIN DO Sep 07, 2018 14:55
== END 2018-09-04 23:32 | disposition expired | DRG 377 ==
LOC: EDUNIT# 13:51 → ER 13:54 → ICU 16:47 → 4TH 09-04 19:20
PROVIDERS: ADMIT Internal Medicine; ATTEND Internal Medicine
PROC: 0DBP8ZX Excision of Rectum, Via Natural or Artificial Opening Endoscopic, Diagnostic (ICD-10-PCS; 2018-09-03)
PROC: 0DB78ZX Excision of Stomach, Pylorus, Via Natural or Artificial Opening Endoscopic, Diagnostic (ICD-10-PCS; principal; 2018-09-03 09:58)
PROC: 0DB68ZX Excision of Stomach, Via Natural or Artificial Opening Endoscopic, Diagnostic (ICD-10-PCS; 2018-09-03 09:58)
DX: K29.71 Gastritis, unspecified, with bleeding (principal); I50.21 Acute systolic (congestive) heart failure; J18.1 Lobar pneumonia, unspecified organism; D61.9 Aplastic anemia, unspecified; J96.90 Respiratory failure, unspecified, unspecified whether with hypoxia or hypercapnia; N17.9 Acute kidney failure, unspecified; J44.0 Chronic obstructive pulmonary disease with (acute) lower respiratory infection; Z66 Do not resuscitate; Z51.5 Encounter for palliative care; E87.2 Acidosis; I49.5 Sick sinus syndrome; I44.2 Atrioventricular block, complete; I85.00 Esophageal varices without bleeding; R19.5 Other fecal abnormalities; I48.0 Paroxysmal atrial fibrillation; E11.9 Type 2 diabetes mellitus without complications; I44.0 Atrioventricular block, first degree; J84.10 Pulmonary fibrosis, unspecified; N18.3 Chronic kidney disease, stage 3 (moderate); E87.5 Hyperkalemia; F17.220 Nicotine dependence, chewing tobacco, uncomplicated; K62.1 Rectal polyp; E87.6 Hypokalemia; E83.42 Hypomagnesemia; K44.9 Diaphragmatic hernia without obstruction or gangrene; Z79.84 Long term (current) use of oral hypoglycemic drugs
CPT/HCPCS: 36415; 36600; 71045; 71046; 71250; 74176; 80048; 80053; 81000; 82274; 82668; 82728; 82784; 82805; 82962; 83540; 83605; 83615; 83735; 83880; 83883; 84100; 84155; 84165; 84443; 84484; 85007; 85014; 85018; 85025; 85027; 85045; 86850; 86900; 86901; 86920; 87040; 87077; 87081; 87088; 87186; 87449; 87631; 87899; 88305; 93005; 93041; 93306; 94640; 94660; 94664; 96365; 96375

== ENCOUNTER → 2018-08-31 | Emergency (ER) | payer MEDICARE, OTHER ==
[~2018-08-31] MED LIST: ASPI-983 PO; FERR325T18 PO; IBUP-30 PO; METF-399 PO; METFORMIN 1000 MG; MULT-1102 PO; OMEG-160 PO; ZOLP10TA PO; ZOLPIDEM 10 MG
--- NOTE | 2018-08-31 12:10 | NUR ---
PT PRESENTED TO ED REGISTRATION WINDOW ESCORTED BY RAND JONES AT 1208. PT DEPARTING ED REGISTRATION WINDOW AFTER PROVIDER FOR [facility] RAND JONES SPOKE WITH OUR ED PROVIDER DR ANTONIO ABOUT PT WITH LOW HGB AND NEEDING A TRANSFUSION. PROVIDER TO PROVIDER DISCUSSION INCLUDED ER PHYSICIAN ASKING IF PT APPEARING UNSTABLE? HAVING CHEST PAIN? A SEVERE CARDIAC HX? AND OTHERWISE EXPLAINING WE WOULD PROVIDE AN ER WORK UP AND TRANSFER PT [facility] [place] [facility] FOR COMPLETION OF BLOOD TRANSFUSION AVAILABLE SERVICE IN [place]. THE PA WENT TO EXPLAIN TO PATIENT ABOUT THE PROCESS AND THE NEED TO GET TRANSFUSION AT THE [facility] LOCATION EITHER ER TRANSFER OF HIM VS OP SET UP FOR TRANSFUSION IN OP AREA AT [facility]. NOTED THE PT LEFT THE REGISTRATION AREA AFTER THE PA FINISHED SPEAKING WITH HIM.
--- OUTSIDE RECORDS SUMMARY | 2018-08-31 12:13 | XMS REPORT | Continuity of Care Document ---
Author Organization Unknown Address Unknown Allergies There is no data. Medications There is no data. Problems There is no data. Procedures There is no data. Results There is no data. Encounters ACCT No. Visit Date/Time Discharge Status Pt. Type Provider Facility Loc./Unit Complaint [id number] 08/31/2018 10:40:00 ACT Outpatient [facility]
== END | disposition left against medical advice (07) ==
LOC: EDUNIT# 12:08 → ER FS 12:10
DX: R06.02 Shortness of breath (principal); R71.8 Other abnormality of red blood cells